=== PATIENT | female | born 1995 | race Caucasian/White ===

== ENCOUNTER 2016-09-28 09:51 | Emergency (ER) | payer BC ==
[~2016-09-28] VITALS: Ht 170.2 cm; Wt 60.0 kg
[~2016-09-28 09:51] MED LIST: LORTA5 PO
[2016-09-28 09:54] VITALS: BP 115/62; PULSE 72; RESP 17; TEMP 98.1; O2SAT 98
[2016-09-28] MEDS ORDERED: BIRTH CONTROL (10:10)
[2016-09-28 10:19] VITALS: O2SAT 99
[2016-09-28] MEDS ORDERED: diphenhydrAMINE HCL 50 MG/ML VIAL IVP ONE (10:30)
[2016-09-28] MEDS ORDERED: SODIUM CHLORIDE 0.9% FLUSH 10 ML FLUSH IVF PRN (10:30)
[2016-09-28] MEDS ORDERED: METOCLOPRAMIDE HCL 10 MG/2 ML VIAL IVP ONE (10:30)
[2016-09-28 10:34] VITALS: BP 101/55; PULSE 76; RESP 15; O2SAT 99
[2016-09-28 10:48] LABS: AUTOMATED NEUTROPHIL # 5.6 TH/MM3 (1.8-7.7); BASOPHIL % 0.3 % (0.0-2.0); EOSINOPHIL % 0.6 % (0.0-4.0); HEMATOCRIT 38.2 % (35.0-46.0); HEMO FLAGS DIFF FINAL; LYMPH % 13.5 % (9.0-44.0); MEAN CELL VOLUME 86.1 FL (80.0-100.0); MEAN CORPUSCULAR HEMOGLOBIN 29.3 PG (27.0-34.0); MONO % 8.9 % (0.0-8.0); NEUT % 76.7 % (16.0-70.0); PLATELET COUNT 284 TH/MM3 (150-450); RED BLOOD COUNT 4.44 MIL/MM3 (4.00-5.30); RED CELL DISTRIBUTION WIDTH 12.2 % (11.6-17.2); WHITE BLOOD COUNT 7.3 TH/MM3 (4.0-11.0)
--- NOTE | 2016-09-28 10:57 | PD ---
HPI Chief Complaint: Seizure Time Seen by Provider: 10:09 Travel History International Travel<30 days: No Contact w/Intl Traveler<30days: No Traveled to known affect area: No History of Present Illness HPI Patient is a 21-year-old healthy female presents the emergency department with possible seizure. Patient was reportedly at home this morning with her significant other. She had a spell of altered mental status and shaking. She did not bite her tongue, did not lose consciousness. Shortly after patient's boyfriend called patient's parents, per parents patient seemed confused and had some garbled speech on the phone. Parents recommended calling 911 but this was not done and they drove from [place] to the house. In the interim patient mental status improved and she is now at baseline though confused about what happened. She notes a mild headache and some nausea. No history of seizure and self or family. No history of syncope, arrhythmia or familial history of long QT syndrome, WPW, Brugada. PFSH Past Medical History Medical History: Denies Significant Hx Pneumonia: Yes Tetanus Vaccination: Unknown Influenza Vaccination: No ?: Unknown LMP: UNKNOWN : 0 Past Surgical History Surgical History: No Previous Surgery Social History Alcohol Use: No Tobacco Use: No Substance Use: No Allergies-Medications (Allergen,Severity, Reaction): Coded Allergies: No Known Allergies (Verified , 09/28/16) Reported Meds & Prescriptions Reported Meds & Active Scripts Active Reported [ Control ] Review of Systems Except as stated in HPI: all other systems reviewed are Neg Physical Exam Narrative GENERAL: Well-appearing female in no acute distress SKIN: Focused skin assessment warm/dry. HEAD: Atraumatic. Normocephalic. EYES: Pupils equal and round. No scleral icterus. No injection or drainage. ENT: No nasal bleeding or discharge. Mucous membranes pink and moist. No tongue biting. NECK: Supple. CARDIOVASCULAR: Regular rate and rhythm. No murmur appreciated. RESPIRATORY: No accessory muscle use. Clear to auscultation. Breath sounds equal bilaterally. GASTROINTESTINAL: Abdomen soft, non-tender, nondistended. Urinary incontinence. MUSCULOSKELETAL: No obvious deformities. No clubbing. No cyanosis. No edema. NEUROLOGICAL: Awake and alert. No obvious cranial nerve deficits. Motor grossly within normal limits. Normal speech. PSYCHIATRIC: Appropriate mood and affect; insight and judgment normal. Data Data Last Documented VS Vital Signs Date Time Temp Pulse Resp B/P Pulse Ox O2 Delivery O2 Flow Rate FiO2 09/28/16 10:34 76 15 101/55 99 Room Air 09/28/16 09:54 98.1 Orders Complete Blood Count With Diff (09/28/16 10:18) Basic Metabolic Panel (Bmp) (09/28/16 10:18) Electrocardiogram (09/28/16 ) Ct Brain W/O Iv Contrast(Rout) (09/28/16 ) Blood Glucose (09/28/16 10:18) Ecg Monitoring (09/28/16 10:18) Iv Access Insert/Monitor (09/28/16 10:18) Oximetry (09/28/16 10:18) Sodium Chloride 0.9% Flush (Ns Flush) (09/28/16 10:30) Diphenhydramine Inj (Benadryl Inj) (09/28/16 10:30) Metoclopramide Inj (Reglan Inj) (09/28/16 10:30) Labs Laboratory Tests Test 09/28/16 10:25 White Blood Count 7.3 TH/MM3 Red Blood Count 4.44 MIL/MM3 Hemoglobin 13.0 GM/DL Hematocrit 38.2 % Mean Corpuscular Volume 86.1 FL Mean Corpuscular Hemoglobin 29.3 PG Mean Corpuscular Hemoglobin 34.0 % Concent Red Cell Distribution Width 12.2 % Platelet Count 284 TH/MM3 Mean Platelet Volume 7.6 FL Neutrophils (%) (Auto) 76.7 % Lymphocytes (%) (Auto) 13.5 % Monocytes (%) (Auto) 8.9 % Eosinophils (%) (Auto) 0.6 % Basophils (%) (Auto) 0.3 % Neutrophils # (Auto) 5.6 TH/MM3 Lymphocytes # (Auto) 1.0 TH/MM3 Monocytes # (Auto) 0.6 TH/MM3 Eosinophils # (Auto) 0.0 TH/MM3 Basophils # (Auto) 0.0 TH/MM3 CBC Comment DIFF FINAL Differential Comment Sodium Level 137 MEQ/L Potassium Level 3.7 MEQ/L Chloride Level 105 MEQ/L Carbon Dioxide Level 24.9 MEQ/L Anion Gap 7 MEQ/L Blood Urea Nitrogen 13 MG/DL Creatinine 0.86 MG/DL Estimat Glomerular Filtration 83 ML/MIN Rate Random Glucose 170 MG/DL Calcium Level 8.3 MG/DL MDM Medical Decision Making Medical Screen Exam Complete: Yes Emergency Medical Condition: Yes Medical Record Reviewed: Yes Differential Diagnosis 21-year-old female here for spell of altered mental status and shaking. Differential includes seizure, syncope with myoclonus, arrhythmia, electrolyte abnormality, symptomatic anemia. Narrative Course Patient placed on monitor, IV established and blood obtained. Twelve-lead EKG shows sinus rhythm without notable ST or T-wave abnormalities and normal intervals. Patient was given Benadryl, Reglan for headache. CBC, BMP obtained and unremarkable. CT of the brain showed no acute abnormalities. Patient's boyfriend presents the ER and describes this event as a generalized tonic- clonic type seizure with rigidity and altered mental status consistent with post ictal phase thereafter. My strong suspicion is that this was a seizure and not a syncopal episode. Patient and parents are reassured and she was referred to neurology for outpatient follow-up. Diagnosis Primary Impression: Seizure Referrals: Adam Sun MD call for appointment Neurologist call for appointment Additional Instructions: Follow up with outpatient neurologist as discussed for further workup of possible first-time seizure. Return to the ER for the warning signs discussed. No driving for 6 months as discussed. Med/Other Pt SpecificInfo: No Change to Meds Disposition: 01 DISCHARGE HOME Condition: Stable Renetta Nuñez MD Sep 28, 2016 10:57
[2016-09-28 11:02] LABS: BICARBONATE 24.9 MEQ/L (21.0-32.0); POTASSIUM 3.7 MEQ/L (3.5-5.1)
--- NOTE | 2016-09-28 11:49 | RADRPT ---
EXAM DATE/TIME: 09/28/2016 11:09 [facility] COMPARISON: CT BRAIN W/O CONTRAST, May 22, 2009, 11:24. INDICATIONS : Possible seizure today. RADIATION DOSE: 56.35 CTDIvol (mGy) MEDICAL HISTORY : None SURGICAL HISTORY : None. ENCOUNTER: Initial ACUITY: 1 day PAIN SCALE: 0/10 LOCATION: Bilateral head TECHNIQUE: Multiple contiguous axial images were obtained of the head. Using automated exposure control and adj ustment of the mA and/or kV according to patient size, radiation dose was kept as low as reasonably a chievable to obtain optimal diagnostic quality images. FINDINGS: There is no evidence for intracranial hemorrhage, mass effect, mass lesions, edema, or extra-axial fl uid collections. The visualized bony structures appear intact. The ventricles are normal size for t he patient's age. There are no signs of acute infarction for technique. CONCLUSION: Unremarkable study. Rani Caro MD on September 28, 2016 at 11:46 Board Certified Radiologist. This report was verified electronically.
[2016-09-28 12:00] VITALS: BP 100/51; PULSE 72; RESP 15; O2SAT 98
[2016-09-28 13:10] VITALS: BP 103/49
--- NOTE | 2016-09-28 13:41 | EKG ---
Date Performed: 09/28/2016 Time Performed: 10:10:36 PTAGE: 21 years EKG: Sinus rhythm NORMAL ECG NO PREVIOUS TRACING DOCTOR: Bharat Sotelo Interpretating Date/Time 09/28/2016 13:39:40
== END 2016-09-28 13:11 | disposition home or self-care (01) ==
LOC: NEPE 09:51
DX: R56.9 Unspecified convulsions (principal)
CPT/HCPCS: 70450; 80048; 85025; 93005; 96374; 96375; 99285; J1200; J2765

== ENCOUNTER 2016-11-03 11:03 | Inpatient (IN) | payer BC ==
[~2016-11-03] VITALS: Ht 172.7 cm; Wt 71.3 kg
[2016-11-03] VITALS (13 sets, daily range): BP systolic 105–129; BP diastolic 51–81; PULSE 70–113; RESP 18–44; TEMP 97.8–98.7; O2SAT 70–100
[~2016-11-03 11:03] MED LIST changes: +BIRTH CONTROL; -LORTA5 PO
[2016-11-03] MEDS ORDERED: SODIUM CHLORIDE 0.9% FLUSH 10 ML FLUSH IVF PRN (11:15)
[2016-11-03] MEDS ORDERED: [UNRECOGNIZED DRUG - OTHER] PO (11:22)
--- NOTE | 2016-11-03 11:34 | RADRPT ---
EXAM DATE/TIME: 11/03/2016 11:13 [facility] COMPARISON: No previous studies available for comparison. INDICATIONS : Patient states chest pain after seizure today. MEDICAL HISTORY : None. SURGICAL HISTORY : None. ENCOUNTER: Initial ACUITY: 1 day PAIN SCORE: 10 LOCATION: Bilateral chest FINDINGS: Portable AP view of the chest demonstrates a normal-sized cardiac silhouette. There is moderate to se french airspace consolidation in the right lower lung zone with mild consolidation in the right upper l ben zone and left mid to lower lung zone. No pleural effusion or pneumothorax is visualized. The bone s and soft tissues demonstrate no acute finding. CONCLUSION: Bilateral airspace consolidation, right greater than left. Given the history of recent seizure, diffe rential diagnosis includes a neurogenic pulmonary edema, aspiration, or infection. Seb Davis MD on November 03, 2016 at 11:31 Board Certified Radiologist. This report was verified electronically.
[2016-11-03 11:40] LABS: AUTOMATED NEUTROPHIL # 23.6 TH/MM3 (1.8-7.7); BASOPHIL # 0.1 TH/MM3 (0-0.2); BASOPHIL % 0.2 % (0.0-2.0); EOSINOPHIL % 0.1 % (0.0-4.0); HEMATOCRIT 42.4 % (35.0-46.0); HEMO FLAGS DIFF FINAL; LYMPH % 2.1 % (9.0-44.0); LYMPHOCYTE # 0.5 TH/MM3 (1.0-4.8); MEAN CELL VOLUME 88.6 FL (80.0-100.0); MEAN CORPUSCULAR HEMOGLOBIN 29.4 PG (27.0-34.0); MEAN CORPUSCULAR HGB CONC 33.2 % (32.0-36.0); MONO % 5.5 % (0.0-8.0); NEUT % 92.1 % (16.0-70.0); PLATELET COUNT 337 TH/MM3 (150-450); RED BLOOD COUNT 4.79 MIL/MM3 (4.00-5.30); RED CELL DISTRIBUTION WIDTH 12.5 % (11.6-17.2); WHITE BLOOD COUNT 25.6 TH/MM3 (4.0-11.0)
[2016-11-03 11:48] LABS: APTT (PATIENT) 22.9 SEC (24.3-30.1); INTERNATIONAL NORMALIZED RATIO 1.1 RATIO; PROTHROMBIN TIME - PATIENT 11.9 SEC (9.8-11.6)
[2016-11-03 11:55] LABS: ALT (GPT) 22 U/L (10-53); ANION GAP 8 MEQ/L (5-15); AST (GOT) 22 U/L (15-37); BICARBONATE 25.7 MEQ/L (21.0-32.0); BLOOD UREA NITROGEN 14 MG/DL (7-18); CHLORIDE 106 MEQ/L (98-107); GLOMERULAR FILTRATION RATE 62 ML/MIN (>89); MAGNESIUM 1.7 MG/DL (1.5-2.5); SODIUM (NA) 140 MEQ/L (136-145)
[2016-11-03 11:59] LABS: ALKALINE PHOSPHATASE 59 U/L (45-117); BETA HCG QUANT LESS THAN 1 MIU/ML (0-5); CREATINE KINASE 169 U/L (26-192); TOTAL BILIRUBIN ADULT 0.4 MG/DL (0.2-1.0)
[2016-11-03 12:12] LABS: CKMB 1.4 NG/ML (0.5-3.6)
[2016-11-03] MEDS ORDERED: VANCOMYCIN INJ 1,000 MG in SODIUM CHLOR 0.9% 250 ML INJ 250 ML IV ONE (12:15)
[2016-11-03] MEDS ORDERED: PIPERACIL-TAZO 4.5 GM PREMIX 100 ML IV ONE (12:15)
[2016-11-03 12:49] LABS: BLOOD GAS BASE EXCESS -0.4 mmol/L (-2-2); BLOOD GAS CARBOXYHEMOGLOBIN 1.1 % (0-4); BLOOD GAS HCO3 24 mmol/L (22-26); BLOOD GAS METHEMOGLOBIN 0.5 % (0-2); BLOOD GAS O2 HGB SATURATION 94 % (90-100); BLOOD GAS OXYGEN CONTENT 18.5 Vol % (12.0-20.0); BLOOD GAS PCO2 38 mmHg (38-42); BLOOD GAS PO2 75 mmHG (61-120); TEMP CORR TO 98.6
[2016-11-03 12:50] LABS: CRITICAL VALUE NO; DRAW SITE LT RADIAL; LITER FLOW 15 L/M; NUMBER OF ARTERIAL PUNCTURES 1; STAT YES; ULNAR PULSE PRESENT
[2016-11-03] MEDS ORDERED: IOHEXOL 350 MG/ML 10 ML VIAL (for RAD DIAG) IV ONE (13:07)
--- NOTE | 2016-11-03 14:01 | RADRPT ---
EXAM DATE/TIME: 11/03/2016 13:07 [facility] COMPARISON: No previous studies available for comparison. INDICATIONS : Hypoxic seizures,techacardia IV CONTRAST: 90 cc Omnipaque 350 (iohexol) IV RADIATION DOSE: 23.58 CTDIvol (mGy) MEDICAL HISTORY : Seizures. SURGICAL HISTORY : None. ENCOUNTER: Initial ACUITY: 1 day PAIN SCALE: 4/10 LOCATION: chest TECHNIQUE: Volumetric scanning of the chest was performed using a pulmonary embolism protocol MIP images were re constructed. Using automated exposure control and adjustment of the mA and/or kV according to patien t size, radiation dose was kept as low as reasonably achievable to obtain optimal diagnostic quality images. FINDINGS: PULMONARY ARTERIES: There is poor opacification of the pulmonary arteries. This limits evaluation for PE. No PE is identi fied in the main or left and right pulmonary artery branches. Lobar and segmental branches cannot def initely be cleared. LUNGS: There is patchy moderate to severe areas of groundglass attenuation and consolidation bilaterally, ri ght greater than left. Some of the areas demonstrates a crazy paving pattern. No pneumothorax is pres ent. PLEURAE: There is no pleural thickening or pleural effusion. MEDIASTINUM: There is good visualization of the great vessels of the middle mediastinum. No evidence of mediastin al or hilar adenopathy/mass. MUSCULOSKELETAL: Within normal limits for patient age. MISCELLANEOUS: The visualized upper abdominal organs demonstrate no acute abnormality. CONCLUSION: 1. Examination is suboptimal for evaluation for PE. This is secondary to poor opacification of the pu lmonary arteries likely due to bolus timing. No central PE is identified. If there is persistent clin ical concern for PE, consider VQ scan or repeat attempt at a repeat study. 2. Moderate to severe bilateral airspace consolidation and groundglass opacity, right greater than le ft. Appearance is nonspecific. This could represent atypical pulmonary edema, organizing pneumonia, o r other nonspecific inflammatory processes. Consider followup to confirm resolution. Seb Davis MD on November 03, 2016 at 13:53 Board Certified Radiologist. This report was verified electronically.
[2016-11-03] MEDS ORDERED: POTASSIUM PHOSPHATE MONOBASIC 500 MG TAB PO/TUBE PRN (15:00)
[2016-11-03] MEDS ORDERED: RESP: ALBUTEROL 2.5 MG/IPRATROPIUM 0.5 MG NEB (PRN) INH (15:00)
[2016-11-03] MEDS ORDERED: POTASSIUM PHOSPHATE MONOBASIC 500 MG TAB PO PRN (15:00)
[2016-11-03] MEDS ORDERED: MAGNESIUM OXIDE 400 MG TAB PO PRN (15:00)
[2016-11-03] MEDS ORDERED: MAGNESIUM SULFATE INJ 4 GM in SODIUM CHLORIDE 0.9% INJ 92 ML IV PRN (15:00)
[2016-11-03] MEDS ORDERED: POTASSIUM CHLOR 20 MEQ PREMIX 100 ML IV PRN ×2 (15:00)
[2016-11-03] MEDS ORDERED: POTASSIUM CHLOR 40 MEQ PREMIX 100 ML IV PRN ×2 (15:00)
[2016-11-03] MEDS ORDERED: Vancomycin Consult Pharmacy 1 EA OTHER SCH (15:00)
[2016-11-03] MEDS ORDERED: MAGNESIUM SULFATE INJ 2 GM in SODIUM CHLORIDE 0.9% INJ 96 ML IV PRN (15:00)
[2016-11-03] MEDS ORDERED: SODIUM PHOSPHATE INJ 30 MMOL in SODIUM CHLOR 0.9% 250 ML INJ 240 ML IV PRN (15:00)
--- NOTE | 2016-11-03 15:00 | HHI.HP ---
HPI Service Critical Care Medicine Primary Care Physician No Primary Care Physician Admission Diagnosis Diagnosis: Chief Complaint: Weakness Travel History International Travel<30 Days: No Contact w/Intl Traveler <30 Da: No Traveled to Known Affected Are: No History of Present Illness This is a 21-year-old female with a completely unremarkable past medical history who presents with a subacute history of altered mental status episodes which she states she was diagnosed as having seizures around [facility]. She had one of these episodes last night and since then has been feeling more weak and fatigued. She presents today in the emergency department and was found to be severely hypoxemic with SPO2 in the 70s. Chest x-ray showed bilateral pulmonary infiltrates. Chest CT angiography demonstrated multiple areas of groundglass opacities in all lung savage, negative for PE. 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 She states that over the past 2 weeks she's been taking an oral over-the- counter muscle building supplementation that she got from a [employer] store. She denies taking IV steroids. She denies any shortness of breath, and felt feels that she does not feel like she can't catch her breath. She denies chest pain, fever, chills. She denies night sweats. She is sexually active with 1 partner in the last 12 months. She takes control. She usually uses condoms, but not all the time. She has never had an STD before. She is only been out of the country to the [facility], and not in the last 12 months. She is born and raised in [place]. She's never been to the [place]. She has never been tested for HIV. She denies any weight loss over the last few months. She as recently as 2 days prior to admission aggressively weight trained for an upcoming competition, and did at least 2 hours of strenuous cardiovascular activity. She has had no change in functional status. Her laboratory data is significant for a leukocytosis with a white count 25,000 , negative troponin, BNP of 40, lactate of 1.8, negative urine drug screen. Critical care medicine is consulted to evaluate and manage her hypoxemia. She is on a nonrebreather on my evaluation. Review of Systems Constitutional: COMPLAINS OF: Fatigue, DENIES: Diaphoretic episodes, Fever, Weight gain, Weight loss, Chills, Dizziness, Night Sweats Endocrine: DENIES: Heat/cold intolerance Eyes: DENIES: Blurred vision Ears, nose, mouth, throat: DENIES: Nasal discharge, Oral lesions Respiratory: DENIES: Apneas, Cough, Snoring, Wheezing, Hemoptysis, Sputum production, Shortness of breath Cardiovascular: DENIES: Chest pain, Palpitations, Syncope, Dyspnea on Exertion , PND, Lower Extremity Edema, Orthopnea Gastrointestinal: DENIES: Abdominal pain, Constipation, Diarrhea, Nausea, Vomiting Neurologic: COMPLAINS OF: Seizures, DENIES: Headache, Localized weakness Past Family Social History Allergies: Coded Allergies: No Known Allergies (Verified , 11/03/16) Past Medical History Questionably new diagnosis of seizures since September 2016. Being managed as an outpatient by a neurologist Past Surgical History None Reported Medications Oral contraceptives Active Ordered Medications See MAR Family History Mother diagnosed with breast cancer in her 30s Maternal grandmother diagnosed with breast cancer in her late 60s Social History Never smoked. Does not drink alcohol. Does not do any other drugs of abuse. 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 Physical Exam Vital Signs Vital Signs Date Time Temp Pulse Resp B/P Pulse Ox O2 Delivery O2 Flow Rate FiO2 11/03/16 13:57 93 Non-Rebreather 15 11/03/16 13:57 32 80 Nasal Cannula 6 11/03/16 13:52 98.7 87 32 115/60 84 Nasal Cannula 6 11/03/16 12:00 88 40 114/56 100 Non-Rebreather 15 11/03/16 11:18 97 Non-Rebreather 15 11/03/16 11:18 32 70 11/03/16 11:15 97.8 100 32 105/51 70 Physical Exam GENERAL: Young female, very tachypneic, sitting in bed, nonrebreather in place HEENT: Normocephalic. Atraumatic. Pupils equal, round, reactive, conjugate. Mucous membranes are pink and moist. NECK: No JVD. Nonrebreather place. Trachea is midline. CHEST: Tachypneic, mildly labored, fine rales in all lung savage. SPO2 91% on nonrebreather CARDIOVASCULAR: Tachycardic rate, regular rhythm. Sinus by telemetry ABDOMEN: Soft, nontender, nondistended. No guarding. MUSCULOSKELETAL: No peripheral edema. Distal pulses 2+. NEUROLOGICAL: RASS 0. GCS 15. CAM -. Follows commands in all 4 extremity's. No gross focal motor or sensory deficits. Laboratory Laboratory Tests Test 11/03/16 11/03/16 11/03/16 11:30 12:35 13:30 White Blood Count 25.6 Red Blood Count 4.79 Hemoglobin 14.1 Hematocrit 42.4 Mean Corpuscular Volume 88.6 Mean Corpuscular Hemoglobin 29.4 Mean Corpuscular Hemoglobin 33.2 Concent Red Cell Distribution Width 12.5 Platelet Count 337 Mean Platelet Volume 7.5 Neutrophils (%) (Auto) 92.1 Lymphocytes (%) (Auto) 2.1 Monocytes (%) (Auto) 5.5 Eosinophils (%) (Auto) 0.1 Basophils (%) (Auto) 0.2 Neutrophils # (Auto) 23.6 Lymphocytes # (Auto) 0.5 Monocytes # (Auto) 1.4 Eosinophils # (Auto) 0.0 Basophils # (Auto) 0.1 CBC Comment DIFF FINAL Differential Comment Prothrombin Time 11.9 Prothromb Time International 1.1 Ratio Activated Partial 22.9 Thromboplast Time Sodium Level 140 Potassium Level 4.0 Chloride Level 106 Carbon Dioxide Level 25.7 Anion Gap 8 Blood Urea Nitrogen 14 Creatinine 1.10 Estimat Glomerular Filtration 62 Rate Random Glucose 148 Calcium Level 8.5 Magnesium Level 1.7 Total Bilirubin 0.4 Aspartate Amino Transf 22 (AST/SGOT) Alanine Aminotransferase 22 (ALT/SGPT) Alkaline Phosphatase 59 Total Creatine Kinase 169 Creatine Kinase MB 1.4 Troponin I LESS THAN 0.02 B-Type Natriuretic Peptide 40 Total Protein 6.5 Albumin 3.8 Human Chorionic Gonadotropin, LESS THAN 1 Quant Blood Gas Puncture Site LT RADIAL Blood Gas Patient Temperature 98.6 Blood Gas HCO3 24 Blood Gas Base Excess -0.4 Blood Gas Oxygen Saturation 94 Arterial Blood pH 7.41 Arterial Blood Partial 38 Pressure CO2 Arterial Blood Partial 75 Pressure O2 Arterial Blood Oxygen Content 18.5 Arterial Blood 1.1 Carboxyhemoglobin Arterial Blood Methemoglobin 0.5 Blood Gas Hemoglobin 14.0 Oxygen Delivery Device Non-Rebreathing Mask Blood Gas Liter Flow 15 Lactic Acid Level 1.8 Date/Time Procedure Status Source Growth 11/03/16 12:30 Aerobic Blood Culture Received Blood Peripheral Pending 11/03/16 12:30 Anaerobic Blood Culture Received Blood Peripheral Pending Result Diagram: 11/03/16 1130 11/03/16 1130 Imaging Last Impressions Chest X-Ray 11/03/16 1115 Signed Impressions: Service Date/Time: Thursday, November 03, 2016 11:13 - CONCLUSION: Bilateral airspace consolidation, right greater than left. Given the history of recent seizure, differential diagnosis includes a neurogenic pulmonary edema, aspiration, or infection. Seb Davis MD CT Angiography 11/03/16 1115 Signed Impressions: Service Date/Time: Thursday, November 03, 2016 13:07 - CONCLUSION: 1. Examination is suboptimal for evaluation for PE. This is secondary to poor opacification of the pulmonary arteries likely due to bolus timing. No central PE is identified. If there is persistent clinical concern for PE, consider VQ scan or repeat attempt at a repeat study. 2. Moderate to severe bilateral airspace consolidation and groundglass opacity, right greater than left. Appearance is nonspecific. This could represent atypical pulmonary edema, organizing pneumonia, or other nonspecific inflammatory processes. Consider followup to confirm resolution. Seb Davis MD Assessment and Plan Assessment and Plan Assessment: This is a 21-year-old female with subacute diagnosis of intermittent seizures, but very acute new hypoxemia and acute hypoxic respiratory failure. Her groundglass opacities are very concerning for an infectious process such as an atypical Mycoplasma, Legionella, PCP, histoplasma. Alternatively, this could be noninfectious from noncardiogenic pulmonary edema. I have sent out laboratory testing for Legionella, histoplasma , blood, urine cultures, sputum cultures, HIV (which I verbally consented the patient for, and she expressed understanding and agreed). We will start patient on empiric antibiotics vancomycin, Zosyn, azithromycin. We will admit her to the ICU for close monitoring. Given her severe hypoxemia, she is very near requiring noninvasive or invasive positive pressure ventilation, and is at high risk for decompensating. She is critically ill this time. Active problems: Acute hypoxic respiratory failure Bilateral groundglass pulmonary consolidations Leukocytosis Plan: Admit to the ICU Nonrebreather Wean FiO2 for goal SPO2 greater than 90% May require BiPAP or invasive mechanical ventilation Clear liquid diet only Follow-up cultures Follow-up histoplasma, Legionella, pneumococcal urinary antigen Vancomycin with pharmacy dosing Zosyn 4.5 g IV every 6 Azithromycin 500 mg IV every 24 Nebs when necessary 2-D echo Consult infectious disease We will hold off on consulting pulmonary until initial laboratory data is back. This patient remains critically ill with one or more organ systems which are or may become a threat to life. I have spent in excess of 53 minutes discontinuously in the care and management of this patient. This time is exclusive of procedures, and includes, but is not limited to, evaluation of the patient, review of the medical record, discussions with family, consultants, nursing staff, or respiratory therapy, and documentation in the medical record. Code Status Full Code Giancarlo Spence MD November 03, 2016 15:00
--- NOTE | 2016-11-03 15:05 | PD ---
HPI Chief Complaint: Seizure Time Seen by Provider: 11:15 Travel History International Travel<30 days: No Contact w/Intl Traveler<30days: No Traveled to known affect area: No History of Present Illness HPI Patient 21-year-old female with a history of seizures presents emergency department postictal after seizure with hypoxia. Patient states that she does not take any antiepileptic. She states that she's had a cough ever since a seizure today. Patient is awake left orbit denies IV drug abuse. Denies any fever denies any illness prior to today. States last time she would had a seizure was unknown. PFSH Past Medical History Diminished Hearing: No Pneumonia: Yes Seizures: Yes Tetanus Vaccination: > 5 Years Influenza Vaccination: No ?: Not LMP: 10/2016 : 0 Para: 0 Miscarriage: 0 : 0 Social History Alcohol Use: No Tobacco Use: No Substance Use: No Allergies-Medications (Allergen,Severity, Reaction): Coded Allergies: No Known Allergies (Verified , 11/03/16) Reported Meds & Prescriptions Reported Meds & Active Scripts Active Reported [Plague Supplement] 1 Tab PO DAILY [ Control ] Review of Systems Except as stated in HPI: all other systems reviewed are Neg Physical Exam Narrative GENERAL: Well-developed well-nourished central cyanosis and pallor. SKIN: Focused skin assessment warm/dry. HEAD: Atraumatic. Normocephalic. No splitter hemorrhages no Osler nodes. EYES: Pupils equal and round. No scleral icterus. No injection or drainage. ENT: No nasal bleeding or discharge. Mucous membranes pink and moist. NECK: Trachea midline. No JVD. CARDIOVASCULAR: Regular rhythm with tachycardia.. No murmur appreciated. RESPIRATORY: No accessory muscle use. Clear to auscultation. Breath sounds equal bilaterally. GASTROINTESTINAL: Abdomen soft, non-tender, nondistended. Hepatic and splenic margins not palpable. MUSCULOSKELETAL: No obvious deformities. No clubbing. No cyanosis. No edema. NEUROLOGICAL: Awake and alert. No obvious cranial nerve deficits. Motor grossly within normal limits. Normal speech. PSYCHIATRIC: Appropriate mood and affect; insight and judgment normal. Data Data Last Documented VS Vital Signs Date Time Temp Pulse Resp B/P Pulse Ox O2 Delivery O2 Flow Rate FiO2 11/03/16 14:00 97 Non-Rebreather 15.00 11/03/16 13:57 32 11/03/16 13:52 98.7 87 115/60 Orders Electrocardiogram (11/03/16 11:15) B-Type Natriuretic Peptide (11/03/16 11:15) Ckmb (Isoenzyme) Profile (11/03/16 11:15) Complete Blood Count With Diff (11/03/16 11:15) Comprehensive Metabolic Panel (11/03/16 11:15) Magnesium (Mg) (11/03/16 11:15) Prothrombin Time / Inr (Pt) (11/03/16 11:15) Act Partial Throm Time (Ptt) (11/03/16 11:15) Troponin I (11/03/16 11:15) Chest, Single Ap (11/03/16 11:15) Ecg Monitoring (11/03/16 11:15) Iv Access Insert/Monitor (11/03/16 11:15) Oximetry (11/03/16 11:15) Oxygen Administration (11/03/16 11:15) Sodium Chloride 0.9% Flush (Ns Flush) (11/03/16 11:15) Ct Pulmonary Angiogram (11/03/16 11:15) Beta Hcg (Quant/Titer) (11/03/16 11:15) CKMB (11/03/16 11:30) CKMB% (11/03/16 11:30) Vancomycin Inj (Vancomycin Inj) (11/03/16 12:15) Piperacil-Tazo 4.5 Gm Premix (Zosyn 4.5 (11/03/16 12:15) Blood Culture (11/03/16 12:01) Arterial Blood Gas (Abg) (11/03/16 ) Lactic Acid Sepsis Protocol (11/03/16 13:05) Drug Screen, Random Urine (11/03/16 13:55) Inpatient Certification (11/03/16 14:46) Resp Ezpap/Pep Therapy (11/03/16 14:46) Resp Acapella/Pep/Chest Vibra (11/03/16 14:46) Resp Incentive Spirometry (11/03/16 14:46) Magnesium Oxide (Mag-Ox) (11/03/16 15:00) Magnesium Sulfate Inj (Magnesium Sulfate (11/03/16 15:00) Magnesium Sulfate Inj (Magnesium Sulfate (11/03/16 15:00) Potassium Chlor 20 Meq Premix (Kcl 20 Me (11/03/16 15:00) Potassium Chlor 20 Meq Premix (Kcl 20 Me (11/03/16 15:00) Potassium Chlor 40 Meq Premix (Kcl 40 Me (11/03/16 15:00) Potassium Chlor 40 Meq Premix (Kcl 40 Me (11/03/16 15:00) Potassium Phosphate (K-Phos) (11/03/16 15:00) Potassium Phosphate (K-Phos) (11/03/16 15:00) Sodium Phosphate Inj (Sodium Phosphate I (11/03/16 15:00) ^ Medication Admin Instruction (11/03/16 14:46) Notify Dr: Other (11/03/16 14:46) Cbc No Diff, Includes Plts (11/04/16 05:00) Cbc No Diff, Includes Plts (11/05/16 05:00) Cbc No Diff, Includes Plts (11/06/16 05:00) Cbc No Diff, Includes Plts (11/07/16 05:00) Cbc No Diff, Includes Plts (11/08/16 05:00) Cbc No Diff, Includes Plts (11/09/16 05:00) Cbc No Diff, Includes Plts (11/10/16 05:00) Basic Metabolic Panel (Bmp) (11/04/16 05:00) Basic Metabolic Panel (Bmp) (11/05/16 05:00) Basic Metabolic Panel (Bmp) (11/06/16 05:00) Basic Metabolic Panel (Bmp) (11/07/16 05:00) Basic Metabolic Panel (Bmp) (11/08/16 05:00) Basic Metabolic Panel (Bmp) (11/09/16 05:00) Basic Metabolic Panel (Bmp) (11/10/16 05:00) Arterial Blood Gas (Abg) (11/04/16 06:00) Albuterol-Ipratropium Neb (Duoneb Neb) (11/03/16 16:00) Albuterol-Ipratropium Neb (Duoneb Neb) (11/03/16 15:00) Sputum Culture And Gram Stain (11/03/16 14:46) Urinalysis - C+S If Indicated (11/03/16 14:46) Specimen To Be Collected PRN (11/03/16 14:46) Ur Histoplasma Antigen (11/03/16 14:48) Legionella Urinary Antigen (11/03/16 14:48) Mycoplasma Pneumoniae (11/03/16 14:48) Chlamydia Pneumoniae Abs (11/03/16 14:48) Pneumococcal Urinary Antigen (11/03/16 14:48) Hiv Antibody Screen (11/03/16 14:49) Vancomycin Consult Pharmacy (Vancomycin (11/03/16 15:00) Piperacil-Tazo 4.5 Gm Premix (Zosyn 4.5 (11/03/16 18:00) Azithromycin Inj (Zithromax Inj) (11/03/16 15:00) Consult Infectious Disease (11/03/16 ) Echo 2d Comp With Doppler (11/03/16 ) Admit Order (Ed Use Only) (11/03/16 ) Labs Laboratory Tests Test 11/03/16 11/03/16 11/03/16 11/03/16 11:30 12:35 13:30 15:00 White Blood Count 25.6 TH/MM3 Red Blood Count 4.79 MIL/MM3 Hemoglobin 14.1 GM/DL Hematocrit 42.4 % Mean Corpuscular Volume 88.6 FL Mean Corpuscular Hemoglobin 29.4 PG Mean Corpuscular Hemoglobin 33.2 % Concent Red Cell Distribution Width 12.5 % Platelet Count 337 TH/MM3 Mean Platelet Volume 7.5 FL Neutrophils (%) (Auto) 92.1 % Lymphocytes (%) (Auto) 2.1 % Monocytes (%) (Auto) 5.5 % Eosinophils (%) (Auto) 0.1 % Basophils (%) (Auto) 0.2 % Neutrophils # (Auto) 23.6 TH/MM3 Lymphocytes # (Auto) 0.5 TH/MM3 Monocytes # (Auto) 1.4 TH/MM3 Eosinophils # (Auto) 0.0 TH/MM3 Basophils # (Auto) 0.1 TH/MM3 CBC Comment DIFF FINAL Differential Comment Prothrombin Time 11.9 SEC Prothromb Time International 1.1 RATIO Ratio Activated Partial 22.9 SEC Thromboplast Time Sodium Level 140 MEQ/L Potassium Level 4.0 MEQ/L Chloride Level 106 MEQ/L Carbon Dioxide Level 25.7 MEQ/L Anion Gap 8 MEQ/L Blood Urea Nitrogen 14 MG/DL Creatinine 1.10 MG/DL Estimat Glomerular Filtration 62 ML/MIN Rate Random Glucose 148 MG/DL Calcium Level 8.5 MG/DL Magnesium Level 1.7 MG/DL Total Bilirubin 0.4 MG/DL Aspartate Amino Transf 22 U/L (AST/SGOT) Alanine Aminotransferase 22 U/L (ALT/SGPT) Alkaline Phosphatase 59 U/L Total Creatine Kinase 169 U/L Creatine Kinase MB 1.4 NG/ML Troponin I LESS THAN 0.02 NG/ML B-Type Natriuretic Peptide 40 PG/ML Total Protein 6.5 GM/DL Albumin 3.8 GM/DL Human Chorionic Gonadotropin, LESS THAN 1 Quant MIU/ML Blood Gas Puncture Site LT RADIAL Blood Gas Patient Temperature 98.6 Blood Gas HCO3 24 mmol/L Blood Gas Base Excess -0.4 mmol/L Blood Gas Oxygen Saturation 94 % Arterial Blood pH 7.41 Arterial Blood Partial 38 mmHg Pressure CO2 Arterial Blood Partial 75 mmHG Pressure O2 Arterial Blood Oxygen Content 18.5 Vol % Arterial Blood 1.1 % Carboxyhemoglobin Arterial Blood Methemoglobin 0.5 % Blood Gas Hemoglobin 14.0 G/DL Oxygen Delivery Device Non-Rebreathing Mask Blood Gas Liter Flow 15 L/M Lactic Acid Level 1.8 mmol/L Urine Color YELLOW Urine Turbidity CLEAR Urine pH 7.0 Urine Specific [place] GREATER THAN 1.035 Urine Protein TRACE mg/dL Urine Glucose (UA) NEG mg/dL Urine Ketones NEG mg/dL Urine Occult Blood NEG Urine Nitrite NEG Urine Bilirubin NEG Urine Urobilinogen LESS THAN 2.0 MG/DL Urine Leukocyte Esterase NEG Urine RBC 1 /hpf Urine WBC 2 /hpf Urine Squamous Epithelial 2 /hpf Cells Urine Bacteria RARE /hpf Urine Mucus FEW /lpf Microscopic Urinalysis Comment CATH-CULTURE IND Urine Opiates Screen NEG Urine Barbiturates Screen NEG Urine Amphetamines Screen NEG Urine Benzodiazepines Screen NEG Urine Cocaine Screen NEG Urine Cannabinoids Screen NEG MDM Medical Decision Making Medical Screen Exam Complete: Yes Emergency Medical Condition: Yes Interpretation(s) EKG shows sinjus tachycardia, non-specific t-wave abnormality. No elevations of ST segments. Abnormal ekg. Differential Diagnosis Pneumonia, sepsis, hypoxia, PE, epilepsy, aspiration. Narrative Course Patient was roomed in emergency department, she does have SIRS criteria with a normal lactic acid and therefore send sepsis without septic shock. Chest x-ray shows patchy infiltrate. CT pulmonary embolism shows no evidence of pulmonary embolism but does show groundglass opacities consistent with multilobar pneumonia. Differential diagnosis does include neurogenic pulmonary edema as well as pneumonia as well as septic pulmonary emboli the latter being less likely. Patient's father is pulmonary the room and explained that the patient has been offered intravenous steroids in the past but has declined them on multiple times. Last 24 hours Impressions Chest X-Ray 11/03/16 1115 Signed Impressions: Service Date/Time: Thursday, November 03, 2016 11:13 - CONCLUSION: Bilateral airspace consolidation, right greater than left. Given the history of recent seizure, differential diagnosis includes a neurogenic pulmonary edema, aspiration, or infection. Seb Davis MD CT Angiography 11/03/16 1115 Signed Impressions: Service Date/Time: Thursday, November 03, 2016 13:07 - CONCLUSION: 1. Examination is suboptimal for evaluation for PE. This is secondary to poor opacification of the pulmonary arteries likely due to bolus timing. No central PE is identified. If there is persistent clinical concern for PE, consider VQ scan or repeat attempt at a repeat study. 2. Moderate to severe bilateral airspace consolidation and groundglass opacity, right greater than left. Appearance is nonspecific. This could represent atypical pulmonary edema, organizing pneumonia, or other nonspecific inflammatory processes. Consider followup to confirm resolution. Seb Davis MD Patient with tachycardia, increased WBC. Ground glass opacity on CT. Considering the above patient with PNA and hypoxic respiratory failure requiring NRB in ED to maintain sat >90%. Antibiotics given. [place] [facility] [place] Dr. Spence. Critical Care Narrative Critical Care: The total critical care time was 31 minutes. Multiple reassessments, interpreting results, discussing with consultants. Possible adverse outcomes include , disability and organ failure. Time to perform other separately billable procedures was not included in the critical care time. Sepsis Criteria SIRS Criteria (2 or more): Heart rate over 90, WBC > 52488, < 4000 or > 10% bands Sepsis Criteria (SIRS+source): Infect source susp/known Diagnosis Primary Impression: Acute respiratory failure with hypoxia Additional Impressions: Sepsis PNA (pneumonia) Admitting Information Admitting Physician Requests: Admit Condition: Isaias Thacker MD November 03, 2016 15:05
[2016-11-03 15:19] LABS: AMPHETAMINE, URINE NEG (NEG); BARBITURATES, URINE NEG (NEG); COCAINE, URINE NEG (NEG)
[2016-11-03] MEDS: AZITHROMYCIN INJ 500 MG in SODIUM CHLOR 0.9% 250 ML INJ 250 ML IV SCH (15:58)
[2016-11-03 16:12] LABS: BACTERIA, URINE RARE /hpf; BLOOD, URINE NEG (NEG); COMMENT (UR) CATH-CULTURE IND; CULTURE IF INDICATED CATH CULTURE IND; GLUCOSE,URINE NEG (NEG); KETONE, URINE NEG (NEG); MUCUS URINE FEW /lpf (OCC); NITRITE,URINE NEG (NEG); SQUAMOUS EPITHELIAL CELL URINE 2 /hpf (0-5); URINE COLOR YELLOW (YELLW/STRAW)
[2016-11-03] MEDS: RESP: ALBUTEROL 2.5 MG/IPRATROPIUM 0.5 MG NEB (SCH) INH ×2 (16:41→20:45)
[2016-11-03] MEDS ORDERED: CHLORHEXIDINE GLUCONATE 2 % 1 PACK (2 CLOTHS)(extra cloths) TOPICAL PRN (19:15)
[2016-11-03] MEDS: SODIUM CHLOR 0.9% 1000 ML INJ 1,000 ML IV SCH (20:25)
[2016-11-03] MEDS: PIPERACIL-TAZO 4.5 GM PREMIX 100 ML IV SCH (20:44)
--- NOTE | 2016-11-03 22:38 | MB ---
cc: MAKENNA MORENO MD DATE OF CONSULTATION 11/03/[address] Matthews REASON FOR CONSULTATION A 19-year-old female with new ground glass opacities, leukocytosis. HISTORY OF PRESENT ILLNESS This is a 21-year-old white female presented to the emergency department with sudden onset of seizures and shortness of breath. The patient experienced two seizures while in the emergency department. She developed sudden onset of shortness of breath today. The patient states that she was feeling well over the past couple of days. I also spoke to her mom who states that she had lunch with her two days ago and she was fine. 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 She denies recent problems except for some back pain about a week ago for which she saw a chiropractor and was treated and she stated that it improved. She had no problems with fevers or chills. Evaluation in the emergency department revealed respiratory rate of 32 and white count of 25.6. Oxygenation revealed a pO2 of 75 and pCO2 of 38. The patient denies prior history of immunosuppression. She has used an [id number] anabolic muscle building supplement named Sarms over the past three weeks. She denies exposure to persons who have been sick. She works out at a gym. She denies problems with dysuria. The patient is sexually active and uses control pills. She has no problems with her menstrual periods. She is coughing up bloody sputum. Chest x-ray earlier this morning showed bilateral airspace consolidation. CT scan of chest shows moderate to severe bilateral airspace consolidation and ground glass opacity, right greater than left. The patient is quite alert and she is oriented. She denies chest pain or muscle pain or muscle aches or joint pains. A 2-D echocardiogram is being performed currently. The patient has no history of IV drug use. The patient's mom mentioned that while she was a child she had problems with asthma and as she grew up it became more exercise induced and then she was free of attacks for many years. The patient is afebrile. She denies sore throat prior to this presentation. The patient denies exposure to toxic drug to toxic chemicals. No recent travels. PAST MEDICAL HISTORY Seizure. ALLERGIES NO KNOWN DRUG ALLERGIES. MEDICATIONS 1. Vancomycin. 2. Piperacillin / Tazobactam. 3. Azithromycin. 4. DuoNeb. SOCIAL HISTORY Denies tobacco, alcohol or illicit drugs. FAMILY HISTORY Noncontributory. REVIEW OF SYSTEMS Her review of systems, pertinent mentioned above history of present illness. PHYSICAL EXAMINATION GENERAL: This is a well-developed muscular female in no acute distress. She is awake and alert and oriented. VITAL SIGNS: Include temperature 98.7, heart rate 87, BP 123/58. Respirations 33. HEENT: Head is atraumatic. Extraocular movements grossly intact, pupils reactive to light. No icterus. No conjunctival erythema. Nose without bleeding. Oropharynx moist mucosa. No visible lesions. NECK: Supple. No adenopathy or swelling. LUNGS: Coarse rhonchi bilateral. HEART: Regular S1-S2. No audible murmurs or rubs or gallops. ABDOMEN: Bowel sounds present, soft, no tenderness appreciated. RECTAL: Not performed. EXTREMITIES: No clubbing or cyanosis or edema. The patient has increased muscle bulk throughout. No calf tenderness. No embolic phenomena. SKIN: No rash. NEUROLOGIC: Alert and oriented. No gross focal findings. LABORATORY DATA WBC 25.6, platelet 337, 90% neutrophils, 2% lymphocytes, 5% monocytes, hemoglobin 14.1. Creatinine 1.10, BUN 14, estimated GFR 62, sodium 140. Liver function tests normal. Total CK 169. IMPRESSION 1. Bilateral lung infiltrates suggesting probable pneumonia versus autoimmune disease given the ground-glass opacity. This could also likely be due to atypical pneumonia. Rule out opportunistic infection. 2. The patient also has acute kidney disease stage II. 3. Hemoptysis. 4. Seizure. Probably unrelated to the pulmonary disease process. RECOMMENDATIONS 1. Continue vancomycin. 2. Continue piperacillin/Tazobactam. 3. Continue azithromycin. 4. Monitor HIV test. 5. Monitor Legionella test. 6. Monitor Mycoplasma serology. 7. Monitor 2-D echocardiogram which has been ordered. 8. Follow clinical status. Thank you this consultation. I will follow the patient's progress and make further recommendations on followup if necessary. Makenna Moreno MD FD/MARQUES /5:21 PM /10:08 PM NANCY
[2016-11-04] VITALS (20 sets, daily range): BP systolic 102–133; BP diastolic 53–73; PULSE 79–118; RESP 12–35; TEMP 98.3–99.1; O2SAT 92–98
[2016-11-04] MEDS: PIPERACIL-TAZO 4.5 GM PREMIX 100 ML IV SCH ×5 (00:34→23:45)
[2016-11-04] MEDS: VANCOMYCIN 1,000 MG/NS 250 ML IV SCH ×4 (01:00→12:15)
[2016-11-04] MEDS: RESP: ALBUTEROL 2.5 MG/IPRATROPIUM 0.5 MG NEB (SCH) INH ×4 (03:42→19:44)
[2016-11-04] MEDS: CHLORHEXIDINE GLUCONATE 2 % 1 PACK (2 CLOTHS)(taper/protocol) TOPICAL SCH (04:00)
[2016-11-04] MEDS: SODIUM CHLOR 0.9% 1000 ML INJ 1,000 ML IV SCH (04:09)
[2016-11-04 05:34] LABS: BLOOD GAS BASE EXCESS -1.7 mmol/L (-2-2); BLOOD GAS CARBOXYHEMOGLOBIN 1.7 % (0-4); BLOOD GAS HCO3 22 mmol/L (22-26); BLOOD GAS O2 HGB SATURATION 95 % (90-100); BLOOD GAS OXYGEN CONTENT 17.1 Vol % (12.0-20.0); BLOOD GAS PCO2 32 mmHg (38-42); BLOOD GAS PO2 87 mmHg (61-120); BLOOD GAS TOTAL HGB 12.8 G/DL (12.0-16.0); CRITICAL VALUE NO; DRAW SITE LT RADIAL; LITER FLOW 4 L/M; NUMBER OF ARTERIAL PUNCTURES 2; OXYGEN DEVICE NASAL CANNULA; STAT NO; TEMP CORR TO 98.6; ULNAR PULSE PRESENT
[2016-11-04 05:48] LABS: HEMATOCRIT 37.6 % (35.0-46.0); MEAN CELL VOLUME 88.3 FL (80.0-100.0); MEAN CORPUSCULAR HEMOGLOBIN 29.4 PG (27.0-34.0); MEAN CORPUSCULAR HGB CONC 33.3 % (32.0-36.0); PLATELET COUNT 274 TH/MM3 (150-450); RED BLOOD COUNT 4.26 MIL/MM3 (4.00-5.30); RED CELL DISTRIBUTION WIDTH 12.7 % (11.6-17.2); REVIEW FLAG FINAL; WHITE BLOOD COUNT 14.6 TH/MM3 (4.0-11.0)
[2016-11-04 06:03] LABS: BICARBONATE 25.5 MEQ/L (21.0-32.0); POTASSIUM 3.7 MEQ/L (3.5-5.1)
--- NOTE | 2016-11-04 08:13 | HHI.CCPN ---
Subjective Remarks/Hospital Course This is a 21-year-old female with a completely unremarkable past medical history who presents with a subacute history of altered mental status episodes which she states she was diagnosed as having seizures around [facility]. She had one of these episodes last night and since then has been feeling more weak and fatigued. She presents today in the emergency department and was found to be severely hypoxemic with SPO2 in the 70s. Chest x-ray showed bilateral pulmonary infiltrates. Chest CT angiography demonstrated multiple areas of groundglass opacities in all lung savage, negative for PE. 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 She states that over the past 2 weeks she's been taking an oral over-the- counter muscle building supplementation that she got from a [employer] store. She denies taking IV steroids. She denies any shortness of breath, and felt feels that she does not feel like she can't catch her breath. She denies chest pain, fever, chills. She denies night sweats. She is sexually active with 1 partner in the last 12 months. She takes control. She usually uses condoms, but not all the time. She has never had an STD before. She is only been out of the country to the [facility], and not in the last 12 months. She is born and raised in [place]. She's never been to the [place]. She has never been tested for HIV. She denies any weight loss over the last few months. She as recently as 2 days prior to admission aggressively weight trained for an upcoming competition, and did at least 2 hours of strenuous cardiovascular activity. She has had no change in functional status.Her laboratory data is significant for a leukocytosis with a white count 25,000, negative troponin, BNP of 40, lactate of 1.8, negative urine drug screen. Critical care medicine is consulted to evaluate and manage her hypoxemia. She is on a nonrebreather on my evaluation. 11/04 Patient is down to 4L oxygen with good sats. Afebrile. WBC trending down. Objective Vital Signs Date Time Temp Pulse Resp B/P Pulse Ox O2 Delivery O2 Flow Rate FiO2 11/04/16 06:00 93 11/04/16 04:00 99.1 23 118/58 95 11/04/16 00:00 Nasal Cannula 4.00 Intake and Output 11/03/16 11/03/16 11/03/16 07:59 15:59 23:59 Intake Total 1225 ml Output Total 400 ml 1000 ml Balance -400 ml 225 ml Result Diagram: 11/04/16 0510 11/04/16 0510 Other Results Laboratory Tests Test 11/03/16 11/03/16 11/03/16 11/03/16 11:30 12:35 13:30 15:00 White Blood Count 25.6 TH/MM3 Red Blood Count 4.79 MIL/MM3 Hemoglobin 14.1 GM/DL Hematocrit 42.4 % Mean Corpuscular Volume 88.6 FL Mean Corpuscular Hemoglobin 29.4 PG Mean Corpuscular Hemoglobin 33.2 % Concent Red Cell Distribution Width 12.5 % Platelet Count 337 TH/MM3 Mean Platelet Volume 7.5 FL Neutrophils (%) (Auto) 92.1 % Lymphocytes (%) (Auto) 2.1 % Monocytes (%) (Auto) 5.5 % Eosinophils (%) (Auto) 0.1 % Basophils (%) (Auto) 0.2 % Neutrophils # (Auto) 23.6 TH/MM3 Lymphocytes # (Auto) 0.5 TH/MM3 Monocytes # (Auto) 1.4 TH/MM3 Eosinophils # (Auto) 0.0 TH/MM3 Basophils # (Auto) 0.1 TH/MM3 CBC Comment DIFF FINAL Differential Comment Prothrombin Time 11.9 SEC Prothromb Time International 1.1 RATIO Ratio Activated Partial 22.9 SEC Thromboplast Time Sodium Level 140 MEQ/L Potassium Level 4.0 MEQ/L Chloride Level 106 MEQ/L Carbon Dioxide Level 25.7 MEQ/L Anion Gap 8 MEQ/L Blood Urea Nitrogen 14 MG/DL Creatinine 1.10 MG/DL Estimat Glomerular Filtration 62 ML/MIN Rate Random Glucose 148 MG/DL Calcium Level 8.5 MG/DL Magnesium Level 1.7 MG/DL Total Bilirubin 0.4 MG/DL Aspartate Amino Transf 22 U/L (AST/SGOT) Alanine Aminotransferase 22 U/L (ALT/SGPT) Alkaline Phosphatase 59 U/L Total Creatine Kinase 169 U/L Creatine Kinase MB 1.4 NG/ML Troponin I LESS THAN 0.02 NG/ML B-Type Natriuretic Peptide 40 PG/ML Total Protein 6.5 GM/DL Albumin 3.8 GM/DL Human Chorionic Gonadotropin, LESS THAN 1 Quant MIU/ML Blood Gas Puncture Site LT RADIAL Blood Gas Patient Temperature 98.6 Blood Gas HCO3 24 mmol/L Blood Gas Base Excess -0.4 mmol/L Blood Gas Oxygen Saturation 94 % Arterial Blood pH 7.41 Arterial Blood Partial 38 mmHg Pressure CO2 Arterial Blood Partial 75 mmHG Pressure O2 Arterial Blood Oxygen Content 18.5 Vol % Arterial Blood 1.1 % Carboxyhemoglobin Arterial Blood Methemoglobin 0.5 % Blood Gas Hemoglobin 14.0 G/DL Oxygen Delivery Device Non-Rebreathing Mask Blood Gas Liter Flow 15 L/M Lactic Acid Level 1.8 mmol/L Urine Color YELLOW Urine Turbidity CLEAR Urine pH 7.0 Urine Specific [place] GREATER THAN 1.035 Urine Protein TRACE mg/dL Urine Glucose (UA) NEG mg/dL Urine Ketones NEG mg/dL Urine Occult Blood NEG Urine Nitrite NEG Urine Bilirubin NEG Urine Urobilinogen LESS THAN 2.0 MG/DL Urine Leukocyte Esterase NEG Urine RBC 1 /hpf Urine WBC 2 /hpf Urine Squamous Epithelial 2 /hpf Cells Urine Bacteria RARE /hpf Urine Mucus FEW /lpf Microscopic Urinalysis Comment CATH-CULTURE IND Urine Opiates Screen NEG Urine Barbiturates Screen NEG Urine Amphetamines Screen NEG Urine Benzodiazepines Screen NEG Urine Cocaine Screen NEG Urine Cannabinoids Screen NEG Test 11/03/16 11/04/16 11/04/16 16:30 05:10 05:20 Nasal Screen MRSA (PCR) MRSA NOT DETECTED White Blood Count 14.6 TH/MM3 Red Blood Count 4.26 MIL/MM3 Hemoglobin 12.5 GM/DL Hematocrit 37.6 % Mean Corpuscular Volume 88.3 FL Mean Corpuscular Hemoglobin 29.4 PG Mean Corpuscular Hemoglobin 33.3 % Concent Red Cell Distribution Width 12.7 % Platelet Count 274 TH/MM3 Mean Platelet Volume 7.4 FL Sodium Level 142 MEQ/L Potassium Level 3.7 MEQ/L Chloride Level 108 MEQ/L Carbon Dioxide Level 25.5 MEQ/L Anion Gap 9 MEQ/L Blood Urea Nitrogen 9 MG/DL Creatinine 0.92 MG/DL Estimat Glomerular Filtration 76 ML/MIN Rate Random Glucose 107 MG/DL Calcium Level 7.9 MG/DL Blood Gas Puncture Site LT RADIAL Blood Gas Patient Temperature 98.6 Blood Gas HCO3 22 mmol/L Blood Gas Base Excess -1.7 mmol/L Blood Gas Oxygen Saturation 95 % Arterial Blood pH 7.44 Arterial Blood Partial 32 mmHg Pressure CO2 Arterial Blood Partial 87 mmHg Pressure O2 Arterial Blood Oxygen Content 17.1 Vol % Arterial Blood 1.7 % Carboxyhemoglobin Arterial Blood Methemoglobin 1.0 % Blood Gas Hemoglobin 12.8 G/DL Oxygen Delivery Device NASAL CANNULA Blood Gas Liter Flow 4 L/M Imaging Last Impressions Chest X-Ray 11/03/16 1115 Signed Impressions: Service Date/Time: Thursday, November 03, 2016 11:13 - CONCLUSION: Bilateral airspace consolidation, right greater than left. Given the history of recent seizure, differential diagnosis includes a neurogenic pulmonary edema, aspiration, or infection. Seb Davis MD CT Angiography 11/03/16 1115 Signed Impressions: Service Date/Time: Thursday, November 03, 2016 13:07 - CONCLUSION: 1. Examination is suboptimal for evaluation for PE. This is secondary to poor opacification of the pulmonary arteries likely due to bolus timing. No central PE is identified. If there is persistent clinical concern for PE, consider VQ scan or repeat attempt at a repeat study. 2. Moderate to severe bilateral airspace consolidation and groundglass opacity, right greater than left. Appearance is nonspecific. This could represent atypical pulmonary edema, organizing pneumonia, or other nonspecific inflammatory processes. Consider followup to confirm resolution. Seb Davis MD Objective Remarks GENERAL: PAtient is 21 yo lying in be din NAD SKIN: Warm and dry. HEAD: Normocephalic. EYES: No scleral icterus. No injection or drainage. NECK: Supple, trachea midline. No JVD or lymphadenopathy. CARDIOVASCULAR:Tachycardic without murmurs, gallops, or rubs. RESPIRATORY: Breath sounds equal bilaterally. No accessory muscle use. GASTROINTESTINAL: Abdomen soft, non-tender, nondistended. MUSCULOSKELETAL: No cyanosis, or edema. BACK: Nontender without obvious deformity. No CVA tenderness. Neuro: Awake and alert. A/P Assessment and Plan 1)Acute hypoxic respiratory failure 2)Bilateral groundglass pulmonary consolidations ddx: Infectious process vs organizing pneumonia vs non-specific inflammatory process 3)Leukocytosis..trending down 4)Mild MARYANN- improved Neuro; Awake and alert, no recurrent seizures. Place on Ativan 1mg Q4 PRN seizures Neuro eval. UDS is negative. Check CT brain Pulm: Wean down oxygen as royal keep sat >92% Bronchodilators, place on Solumederol 60mg Q8 NIPPV PRN for resp distress. Consult pulm- patient might need a bronch with BAL. Check CXR today, check YOANA, RF, ANCA, Jamaal level, Scl 70, Complements levels, SSA/SSB CV: Monitor HR and BP keep MAP>65mmHg For 2D echo to eval LV function : Monitor renal function, electrolytes replacement as needed. GI: Start PO regular diet ID: Continue with abx per ID ( Vanco, Zosyn, Azithromycin) Monitor for signs of infections ( Fever, WBC) WBC trending down Strep pneumonia and Legionella urinary AG negative Follow up on Chlamydia, Mycoplasma titers, Histo Ag pending Endo: SSI if needed for glycemic control Heme: Monitor CBC GI prophylaxis- on PO diet DVT prophylaxis- SCD's, place on Heparin SQ if CT brain is negative Will sign off and transfer care to [facility] Level 3 Lavelle Aguilar MD November 04, 2016 08:12
[2016-11-04] MEDS ORDERED: LORazepam 2 MG/ML VIAL IV PUSH PRN (08:15)
--- NOTE | 2016-11-04 08:48 | RADRPT ---
EXAM DATE/TIME: 11/04/2016 08:11 [facility] COMPARISON: CHEST SINGLE AP, November 03, 2016, 11:13. INDICATIONS : Short of breath. Chest discomfort. MEDICAL HISTORY : Seizures. SURGICAL HISTORY : None. ENCOUNTER: Initial ACUITY: 1 day PAIN SCORE: 2/10 LOCATION: Left middle chest FINDINGS: A single view of the chest demonstrates bilateral patchy airspace disease greater in the right perihi lar region. Osseous structures are intact. CONCLUSION: Bilateral patchy airspace disease greater in the right perihilar region, slightly more prominent on c urrent study. Josef Arnold MD on November 04, 2016 at 8:46 Board Certified Radiologist. This report was verified electronically.
[2016-11-04] MEDS: methylPREDNISolone SOD SUCC 125 MG/2 ML VIAL IV PUSH SCH ×2 (09:00→15:43)
--- NOTE | 2016-11-04 09:41 | MB ---
cc: KIKI SWANSON M.D. DATE OF CONSULTATION: 11/04/2016 REASON FOR CONSULTATION Bilateral pneumonia. HISTORY OF PRESENT ILLNESS Ms. Tiwari is a 21-year-old female who presented to the emergency room with a seizure disorder. The patient was noted to be significantly hypoxemic. Her chest x-ray revealed bilateral lung infiltrates confirmed by CT scan of the chest. She denies history of fever or chills, however, does have blood-tinged sputum. No history of TB or previous industrial exposure. No history of IV drug use. PAST MEDICAL HISTORY Seizure disorder. MEDICATIONS Medications at present: 1. Vancomycin. 2. Piperacillin/tazobactam. 3. Zithromax. 4. DuoNeb. ALLERGIES None known to medication. FAMILY HISTORY Noncontributory. SOCIAL HISTORY Does not smoke. Does not drink. Does not use drugs. REVIEW OF SYSTEMS 12-point review of systems as per HPI. Past history otherwise negative. PHYSICAL EXAMINATION GENERAL: The patient is alert, in no distress, hungry, wants to eat. VITAL SIGNS: Temperature 98.6, respirations 20, blood pressure 120/60. HEENT: Unremarkable. Eyes without icterus. NECK: Without adenopathy or thyroid enlargement. CHEST: A few scattered rhonchi at the bases. CARDIAC: PMI distant. S1, S2 audible. No murmur or rub. ABDOMEN: Lax. Audible bowel sounds. EXTREMITIES: No clubbing, cyanosis or edema. LABORATORY White count 25,000. Sodium 142, potassium 3.7, BUN 9, creatinine 0.9. ABG today pH 7.44, PCO2 32, PO2 87 on 4 liters oxygen. The patient initially with severe hypoxemia with a PO2 of 75 on a nonrebreathing mask 100% oxygen. IMAGING CT scan of the chest: Bilateral lung infiltrates. IMPRESSION 1. Bilateral pneumonia. 2. Seizure disorder. PLAN The patient's bilateral pneumonia is atypical in appearance, whether this is related to an autoimmune process, infectious process or aspiration related to her seizure activity which would seem logical. At this point antibiotic therapy has been initiated and appropriately so. The patient is clinically doing well. Baseline collagen vascular studies would be appropriate. A short course of steroid therapy would be appropriate as well as long as she is covered with antibiotics. She is actually followed by Infectious Disease. Will follow-up her chest x-ray and if need be bronchoscopic examination will be undertaken. I do thank you for asking me to partake in Ms. Tiwari's care. MD SAV Hurst/REJI /9:20 AM /9:31 AM
[2016-11-04 11:16] LABS: RHEUMATOID FACTOR TRIGGER 45.7 IU/ML (0.0-14.9)
--- NOTE | 2016-11-04 11:17 | EC ---
Study Study Date:11/03/2016 STUDY CONCLUSIONS SUMMARY - Left ventricle: The cavity size was normal. Wall thickness was increased in a pattern of mild LVH. Systolic function was normal. The estimated ejection fraction was in the range of 60% to 65%. Wall motion was normal; there were no regional wall motion abnormalities. - Aortic valve: Valve area: 2.3cm^2(VTI). Valve area: 2.1cm^2 (Vmax). - Pulmonary arteries: Systolic pressure was mildly increased. PA peak pressure: 40mm Hg (S). If LV function is below 40, please consider prescribing an ACEI or ARB or document rationale for non-use. PROCEDURE DATA STUDY STATUS: Elective. Procedure: Transthoracic echocardiography. Image quality was good. Scanning was performed from the parasternal, apical, and subcostal acoustic windows. Study completion: The patient tolerated the procedure well. Transthoracic echocardiography. M-mode, complete 2D, complete spectral Doppler, and color Doppler. Height: Height: 68in. Weight: Weight: 153.7lb. Body mass index: BMI: 23.4kg/m^2. Body surface area: BSA: 1.83m^2. Patient status: Inpatient. CARDIAC ANATOMY LEFT VENTRICLE: The cavity size was normal. Wall thickness was increased in a pattern of mild LVH. Systolic function was normal. The estimated ejection fraction was in the range of 60% to 65%. Wall motion was normal; there were no regional wall motion abnormalities. AORTIC VALVE: Trileaflet; normal thickness leaflets. Doppler: Transvalvular velocity was within the normal range. There was no stenosis. No regurgitation. Valve area: 2.3cm^2(VTI). Indexed valve area: 1.26cm^2/m^2 (VTI). Valve area: 2.1cm^2 (Vmax). Indexed valve area: 1.15cm^2/m^2 (Vmax). Mean gradient: 4mm Hg (S). AORTA: Aortic root: The aortic root was normal in size. MITRAL VALVE: Mildly thickened leaflets, . Doppler: Transvalvular velocity was within the normal range. There was no evidence for stenosis. Trace regurgitation. Peak gradient: 5mm Hg (D). LEFT ATRIUM: The atrium was normal in size. RIGHT VENTRICLE: The cavity size was normal. Wall thickness was normal. PULMONIC VALVE: Doppler: Transvalvular velocity was within the normal range. There was no evidence for stenosis. No regurgitation. TRICUSPID VALVE: Structurally normal valve. Doppler: Transvalvular velocity was within the normal range. Trace to mild regurgitation. PULMONARY ARTERY: The main pulmonary artery was normal-sized. Systolic pressure was mildly increased. RIGHT ATRIUM: The atrium was normal in size. PERICARDIUM: There was no pericardial effusion. SYSTEMIC VEINS: Inferior vena cava: The vessel was normal in size. Patient weight: 153.7lb _Ejection fraction:_ 65-75% _Fractional shortening:_ 32% up to 5Kg 5-11.5Kg 11.6-22.9Kg 23-45Kg 45-57Kg Aortic Root 7-13 <17 13-22 17-27 17-27 LA diam 6-13 <23 24-38 33-47 37-40 RVID 10-17 7-15 7-15 7-18 8-17 LVIDd 12-22 <32 24-38 33-47 37-40 LVPW 2-4 3-6 5-7 6-8 7-8 IVS 2-4 3-6 5-7 6-8 7-8 BASIC MEASUREMENTS ADULT NORMAL Left ventricle LV internal dimension, ED, chordal 47.7 mm 43-52 level, PLAX LV internal dimension, ES, chordal 34.3 mm 23-38 level, PLAX Fractional shortening, chordal level, *28 % >29 PLAX LV posterior wall thickness, ED 6.89 mm IVS/LVPW ratio, ED 1 <1.3 Ventricular septum Septal thickness, ED 6.86 mm Aortic valve Leaflet separation 22 mm 15-26 Aorta Root diameter, ED 24 mm Left atrium Anterior-posterior dimension 30 mm Anterior-posterior dimension index 1.64 cm/m^2 <2.2 BASIC MEASUREMENTS ADULT NORMAL Aortic valve Leaflet separation 22 mm 15-26 DOPPLER MEASUREMENTS ADULT NORMAL Main pulmonary artery Pressure, S *40 mm Hg =30 Aortic valve Peak velocity, S 146 cm/s Mean velocity, S 93.9 cm/s VTI, S 26 cm Mean gradient, S 4 mm Hg Valve area, VTI 2.3 cm^2 Valve area index, VTI 1.26 cm^2/m^2 Valve area, Vmax 2.1 cm^2 Valve area index, Vmax 1.15 cm^2/m^2 Mitral valve Peak E-wave velocity 115 cm/s Peak A-wave velocity 61.7 cm/s Deceleration time *137 ms 150-230 Peak gradient, D 5 mm Hg Peak E/A ratio 1.9 Tricuspid valve Regurgitant peak velocity 286 cm/s Peak RV-RA gradient, S 33 mm Hg Maximal regurgitant velocity 286 cm/s Systemic veins Estimated CVP 10 mm Hg Right ventricle RV pressure, S *43 mm Hg <30 Pulmonic valve Peak velocity, S 81.2 cm/s LEGEND: Mean values are shown as u=mean value. Asterisk (*) eddy values outside specified normal range. Prepared and signed by Binh Mcadams [id number]
--- NOTE | 2016-11-04 13:05 | RADRPT ---
EXAM DATE/TIME: 11/04/2016 12:52 [facility] COMPARISON: CT BRAIN W/O CONTRAST, September 28, 2016, 11:09. INDICATIONS : Seizure along with hypoxic respiratory RADIATION DOSE: 34.15 CTDIvol (mGy) MEDICAL HISTORY : Seizures. SURGICAL HISTORY : None. ENCOUNTER: Subsequent ACUITY: 1 month PAIN SCALE: 3/10 LOCATION: cranial TECHNIQUE: Multiple contiguous axial images were obtained of the head. Using automated exposure control and adj ustment of the mA and/or kV according to patient size, radiation dose was kept as low as reasonably a chievable to obtain optimal diagnostic quality images. FINDINGS: CEREBRUM: The ventricles are normal. No evidence of midline shift, mass lesion, hemorrhage or acute infarction . No extra-axial fluid collections are seen. POSTERIOR FOSSA: The cerebellum and brainstem demonstrate no abnormality. The 4th ventricle is midline. The cerebell opontine angle is unremarkable. EXTRACRANIAL: The visualized sinuses are clear. SKULL: The calvaria is intact. No evidence of skull fracture. CONCLUSION: Negative noncontrast head CT. No acute finding is identified. If symptoms continue consider followup with MRI. Seb Davis MD on November 04, 2016 at 13:00 Board Certified Radiologist. This report was verified electronically.
[2016-11-04] MEDS: AZITHROMYCIN INJ 500 MG in SODIUM CHLOR 0.9% 250 ML INJ 250 ML IV SCH (15:00)
--- NOTE | 2016-11-04 15:09 | PD.CONS ---
History of Present Illness Service Neurology Consult Requested [facility] Reason for Consult sz Primary Care Physician No Primary Care Physician History of Present Illness 21-year-old female admitted for confusion and resp distress. seen [facility] and in the icu. found to have ground glass opacities. partner describes pt having 2 gtc's out of sleep. tonic posture/stiffening with post-ictal confusion. pt has had about 5 auras this past Thursday but no overt sz. describes it as her stomach sinking, difficulty speaking. she remembers having this in high school as well. ct brain negative. 09/28/2016 seen in ER for possible seizure. referred for outpatient neurological evaluation. she went to see Dr. Machuca. he ordered an mri brain scan and eeg. she never completed the eeg.she is not on any sz meds. 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 no family hx of sz's. 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 Review of Systems as above/admit hp Past Family Social History Allergies: Coded Allergies: No Known Allergies (Verified , 11/03/16) Past Medical History Questionably new diagnosis of seizures since September 2016. Being managed as an outpatient by a neurologist Past Surgical History None Reported Medications Oral contraceptives Active Ordered Medications See MAR Family History breast cancer Social History Never smoked. Does not drink alcohol. Review of Systems All other ROS: ROS reviewed as documented in chart Past Family Social History Allergies: Coded Allergies: No Known Allergies (Verified , 11/03/16) Active Ordered Medications Current Medications Medications (Trade) Dose Ordered Sig/Arielle Route Start Time Stop Time Status Last Admin (NS Flush) 2 ml UNSCH PRN IVF 11/03/16 11:15 Magnesium Oxide 800 mg 800 mg UNSCH PRN PO 11/03/16 15:00 Magnesium Sulfate 4 gm/Sodium Chloride 100 ml @ 50 mls/hr UNSCH PRN IV 11/03/16 15:00 Magnesium Sulfate 2 gm/Sodium Chloride 100 ml @ 50 mls/hr UNSCH PRN IV 11/03/16 15:00 Potassium Chloride 100 ml @ 50 mls/hr Q2H PRN IV 11/03/16 15:00 Potassium Chloride 100 ml @ 50 mls/hr Q2H PRN IV 11/03/16 15:00 Potassium Chloride 100 ml @ 50 mls/hr Q2H PRN IV 11/03/16 15:00 (KCl 40 Meq Premix Inj) 100 ml @ 25 mls/hr UNSCH PRN IV 11/03/16 15:00 (K-Phos) 2,000 mg Q4H PRN PO 11/03/16 15:00 Potassium Phosphate 2000 mg 2,000 mg UNSCH PRN PO/TUBE 11/03/16 15:00 Sodium Phosphate 30 mmol/Sodium Chloride 250 ml @ 42 mls/hr UNSCH PRN IV 11/03/16 15:00 Pharmacy Profile Note 0 ml @ 0 mls/hr UNSCH OTHER 11/03/16 15:00 Piperacillin Sod/ Tazobactam Sod 100 ml @ 200 mls/hr Q6H IV 11/03/16 18:00 11/04/16 12:00 Azithromycin 500 mg/Sodium Chloride 250 ml @ 250 mls/hr Q24H IV 11/03/16 15:00 11/03/16 15:58 (Vancomycin Inj/ NS 250 ml Inj) 250 ml @ 250 mls/hr Q12H IV 11/04/16 01:00 11/04/16 12:15 Miscellaneous Information SPECIFIC LAB TO BE VERONIKA... ONCE ONCE .XX 11/05/16 00:45 11/05/16 00:46 Miscellaneous Information Patient in critical care unit? Ass... [id number] .XX 11/03/16 19:15 11/03/16 19:15 (Chlorhexidine 2% Cloth) 3 pack DAILY@04 TOPICAL 11/04/16 04:00 11/08/16 04:01 11/04/16 04:00 (Chlorhexidine 2% Cloth) 3 pack UNSCH PRN TOPICAL 11/03/16 19:15 11/08/16 19:12 (SoluMEDROL INJ) 60 mg Q8H IV PUSH 11/04/16 09:00 11/04/16 09:00 (Ativan Inj) 1 mg Q4H PRN IV PUSH 11/04/16 08:15 Exam I&O / VS 11/03/16 11/03/16 11/04/16 14:59 22:59 06:59 Intake Total 2575 ml Output Total 400 ml 1700 ml Balance -400 ml 875 ml Intake Oral 1220 ml IV Total 1355 ml Output Urine Total 400 ml 1700 ml Stool Total 0 ml # Voids 1 Vital Signs Date Time Temp Pulse Resp B/P Pulse Ox O2 Delivery O2 Flow Rate FiO2 11/04/16 12:00 102 11/04/16 10:00 93 11/04/16 08:00 98.3 91 13 120/62 95 11/04/16 08:00 91 11/04/16 07:00 95 Nasal Cannula 4.00 11/04/16 06:00 93 11/04/16 04:00 99.1 102 23 118/58 95 11/04/16 04:00 102 11/04/16 03:00 81 32 114/58 92 11/04/16 02:00 79 11/04/16 02:00 91 30 114/55 92 11/04/16 01:00 87 23 113/58 94 11/04/16 00:00 93 Nasal Cannula 4.00 11/04/16 00:00 80 12 113/57 93 11/04/16 00:00 89 11/03/16 23:00 91 20 127/81 95 11/03/16 22:00 80 11/03/16 22:00 93 18 124/58 94 11/03/16 21:00 113 44 129/60 93 11/03/16 20:45 96 Nasal Cannula 4.00 11/03/16 20:00 70 11/03/16 20:00 94 Simple Mask 6.00 11/03/16 20:00 82 25 122/62 99 11/03/16 18:00 82 11/03/16 16:43 99 Non-Rebreather 12.00 11/03/16 15:43 70 28 110/56 100 Non-Rebreather 15 General: Alert and Oriented, No acute distress Eye: EOMI Respiratory: Non-labored respirations Cardiology: Normal rate Neurologic: Alert, Oriented, Normal sensory, Normal motor, No focal defects, CN II-XII intact, Gag reflex normal, Normal DTR's Psychiatric: Cooperative, Appropriate mood & affect, Normal judgement, Non- suicidal Review/Management Diagnosis/Plan: (1) Seizure Plan: possible complex-partial seizures with 2/2 generalization; possibly temporal lobe onset recs would suggest sz med. keppra 250mg bid x 1 week, then increase to 500mg bid. she is reluctant to start sz meds. f/u eeg f/u with her neurologist, Dr. Machuca sign off; call if ? no driving/swimming alone/climbing heights x 6 months of being sz free (2) Acute respiratory failure with hypoxia Plan: ccm following Adam Sun MD November 04, 2016 15:09
--- NOTE | 2016-11-04 15:37 | HHI.IDPN ---
Note Infectious Disease Note Patient says she feels okay. Still coughs up blood tinged sputum. Gets SOB. On 2L nasal canula. Denies chest pain. Notes hip pain. Rheumatology titers markedly elevated. Afebrile. No additional seizure. HIV negative. Rheumatoid factor markedly elevated. Presented to the emergency department with sudden onset of seizures and shortness of breath. PAST MEDICAL HISTORY Seizure. ALLERGIES NO KNOWN DRUG ALLERGIES. ANTIBIOTICS: 1. Vancomycin. 2. Piperacillin / Tazobactam. 3. Azithromycin. OBJECTIVE: Vital Signs Date Time Temp Pulse Resp B/P Pulse Ox O2 Delivery O2 Flow Rate FiO2 11/04/16 12:00 102 11/04/16 10:00 93 11/04/16 08:00 98.3 91 13 120/62 95 11/04/16 08:00 91 11/04/16 07:00 95 Nasal Cannula 4.00 11/04/16 06:00 93 11/04/16 04:00 99.1 102 23 118/58 95 11/04/16 04:00 102 11/04/16 03:00 81 32 114/58 92 11/04/16 02:00 79 11/04/16 02:00 91 30 114/55 92 11/04/16 01:00 87 23 113/58 94 11/04/16 00:00 93 Nasal Cannula 4.00 11/04/16 00:00 80 12 113/57 93 11/04/16 00:00 89 11/03/16 23:00 91 20 127/81 95 11/03/16 22:00 80 11/03/16 22:00 93 18 124/58 94 11/03/16 21:00 113 44 129/60 93 11/03/16 20:45 96 Nasal Cannula 4.00 11/03/16 20:00 70 11/03/16 20:00 94 Simple Mask 6.00 11/03/16 20:00 82 25 122/62 99 11/03/16 18:00 82 11/03/16 16:43 99 Non-Rebreather 12.00 11/03/16 15:43 70 28 110/56 100 Non-Rebreather 15 11/03/16 11/03/16 11/04/16 14:59 22:59 06:59 Intake Total 2575 ml Output Total 400 ml 1700 ml Balance -400 ml 875 ml Intake Oral 1220 ml IV Total 1355 ml Output Urine Total 400 ml 1700 ml Stool Total 0 ml # Voids 1 Laboratory Tests Test 11/03/16 11/04/16 11:30 05:10 White Blood Count 25.6 TH/MM3 14.6 TH/MM3 Red Blood Count 4.79 MIL/MM3 4.26 MIL/MM3 Hemoglobin 14.1 GM/DL 12.5 GM/DL Hematocrit 42.4 % 37.6 % Mean Corpuscular Volume 88.6 FL 88.3 FL Mean Corpuscular Hemoglobin 29.4 PG 29.4 PG Mean Corpuscular Hemoglobin 33.2 % 33.3 % Concent Red Cell Distribution Width 12.5 % 12.7 % Platelet Count 337 TH/MM3 274 TH/MM3 Mean Platelet Volume 7.5 FL 7.4 FL Neutrophils (%) (Auto) 92.1 % Lymphocytes (%) (Auto) 2.1 % Monocytes (%) (Auto) 5.5 % Eosinophils (%) (Auto) 0.1 % Basophils (%) (Auto) 0.2 % Neutrophils # (Auto) 23.6 TH/MM3 Lymphocytes # (Auto) 0.5 TH/MM3 Monocytes # (Auto) 1.4 TH/MM3 Eosinophils # (Auto) 0.0 TH/MM3 Basophils # (Auto) 0.1 TH/MM3 CBC Comment DIFF FINAL Differential Comment Laboratory Tests Test 11/03/16 11/03/16 11/04/16 11:30 13:30 05:10 Sodium Level 140 MEQ/L 142 MEQ/L Potassium Level 4.0 MEQ/L 3.7 MEQ/L Chloride Level 106 MEQ/L 108 MEQ/L Carbon Dioxide Level 25.7 MEQ/L 25.5 MEQ/L Anion Gap 8 MEQ/L 9 MEQ/L Blood Urea Nitrogen 14 MG/DL 9 MG/DL Creatinine 1.10 MG/DL 0.92 MG/DL Estimat Glomerular Filtration 62 ML/MIN 76 ML/MIN Rate Random Glucose 148 MG/DL 107 MG/DL Calcium Level 8.5 MG/DL 7.9 MG/DL Magnesium Level 1.7 MG/DL Total Bilirubin 0.4 MG/DL Aspartate Amino Transf 22 U/L (AST/SGOT) Alanine Aminotransferase 22 U/L (ALT/SGPT) Alkaline Phosphatase 59 U/L Total Creatine Kinase 169 U/L Creatine Kinase MB 1.4 NG/ML Troponin I LESS THAN 0.02 NG/ML B-Type Natriuretic Peptide 40 PG/ML Total Protein 6.5 GM/DL Albumin 3.8 GM/DL Human Chorionic Gonadotropin, LESS THAN 1 Quant MIU/ML Lactic Acid Level 1.8 mmol/L Microbiology Date/Time Procedure Status Source Growth 11/03/16 12:25 Aerobic Blood Culture - Preliminary Resulted Blood Peripheral NO GROWTH IN 1 DAY 11/03/16 12:25 Anaerobic Blood Culture - Preliminary Resulted Blood Peripheral NO GROWTH IN 1 DAY 11/03/16 12:30 Aerobic Blood Culture - Preliminary Resulted Blood Peripheral NO GROWTH IN 1 DAY 11/03/16 12:30 Anaerobic Blood Culture - Preliminary Resulted Blood Peripheral NO GROWTH IN 1 DAY 11/03/16 15:00 Legionella Antigen - Final Complete Urine Clean Catch PRESUMPTIVE NEGATIVE FOR LEGIONELLA P... 11/03/16 15:00 Streptococcus pneumoniae Antigen (M - Final Complete Urine Clean Catch PRESUMPTIVE NEGATIVE FOR STREPTOCOCCU... 11/03/16 15:00 Urine Culture - Preliminary Resulted Urine Catheterized Urine NO GROWTH IN 24 HOURS. 11/03/16 17:45 Gram Stain - Final Resulted Sputum Expectorated Sputum 11/03/16 17:45 Sputum Culture - Preliminary Resulted Sputum Expectorated Sputum HEAVY GROWTH NORMAL RESPIRATORY SHANNAN... 11/03/16 17:45 Fungal Smear - Final Resulted Sputum Expectorated Sputum NO FUNGAL ELEMENTS SEEN. 11/03/16 17:45 Fungal Culture Resulted Sputum Expectorated Sputum Pending IMAGING: Head CT 11/04/16 0000 Signed Impressions: Service Date/Time: Friday, November 04, 2016 12:52 - CONCLUSION: Negative noncontrast head CT. No acute finding is identified. If symptoms continue consider followup with MRI. Seb Davis MD Chest X-Ray 11/04/16 0000 Signed Impressions: Service Date/Time: Friday, November 04, 2016 08:11 - CONCLUSION: Bilateral patchy airspace disease greater in the right perihilar region, slightly more prominent on current study. Josef Arnold MD CT Angiography 11/03/16 1115 Signed Impressions: Service Date/Time: Thursday, November 03, 2016 13:07 - CONCLUSION: 1. Examination is suboptimal for evaluation for PE. This is secondary to poor opacification of the pulmonary arteries likely due to bolus timing. No central PE is identified. If there is persistent clinical concern for PE, consider VQ scan or repeat attempt at a repeat study. 2. Moderate to severe bilateral airspace consolidation and groundglass opacity, right greater than left. Appearance is nonspecific. This could represent atypical pulmonary edema, organizing pneumonia, or other nonspecific inflammatory processes. Consider followup to confirm resolution. Seb Davis MD PHYSICAL EXAMINATION GENERAL: No acute distress. She is awake and alert and oriented. HEENT: Head is atraumatic. Extraocular movements grossly intact, pupils reactive to light. No icterus. No conjunctival erythema. Oropharynx moist mucosa. No visible lesions. NECK: Supple. LUNGS: Coarse rhonchi bilateral. HEART: Regular S1-S2. No audible murmurs or rubs or gallops. ABDOMEN: Bowel sounds present, soft, no tenderness appreciated. No hepatomegaly or splenomegaly appreciated. EXTREMITIES: No clubbing or cyanosis or edema. No calf tenderness. No embolic phenomena. SKIN: No rash. NEUROLOGIC: Alert and oriented. No gross focal findings. IMPRESSION 1. Bilateral lung infiltrates suggesting probable pneumonia versus autoimmune disease given the ground-glass opacity. This could also likely be due to atypical pneumonia, Organizing pneumonia. Sputum culture has normal shannan. 2. Acute kidney disease stage II. Improving. 3. Hemoptysis. 4. Seizure. RECOMMENDATIONS 1. Continue vancomycin. 2. Continue piperacillin/Tazobactam. 3. Continue azithromycin. 4. Monitor cultures. 5. Obtain procalcitonin level. 5. Follow clinical status. D/W [facility]. [facility]. Shubham Reynolds MD November 04, 2016 15:37
--- NOTE | 2016-11-04 15:43 | EKG ---
Date Performed: 11/03/2016 Time Performed: 11:18:25 PTAGE: 21 years EKG: SINUS TACHYCARDIA NONSPECIFIC T-WAVE ABNORMALITY ABNORMAL RHYTHM ECG Compared to prior trac ing no significant change PREVIOUS TRACING : 09/28/2016 10.10 DOCTOR: Gerry Perkins Interpretating Date/Time 11/04/2016 15:42:47
[2016-11-05] VITALS (14 sets, daily range): BP systolic 98–130; BP diastolic 51–62; PULSE 56–107; RESP 12–29; TEMP 97.9–98.6; O2SAT 91–96
[2016-11-05 00:29] LABS: HISTOPLASMA ANTIGEN UR RESULT Negative (Negative)
[2016-11-05] MEDS: methylPREDNISolone SOD SUCC 125 MG/2 ML VIAL IV PUSH SCH ×3 (00:42→17:28)
[2016-11-05] MEDS: VANCOMYCIN 1,000 MG/NS 250 ML IV SCH ×2 (00:43)
[2016-11-05] MEDS ORDERED: PHARMACY ORDERED LAB ONE (00:45)
[2016-11-05] MEDS: RESP: ALBUTEROL 2.5 MG/IPRATROPIUM 0.5 MG NEB (SCH) INH ×4 (03:49→20:43)
[2016-11-05] MEDS: CHLORHEXIDINE GLUCONATE 2 % 1 PACK (2 CLOTHS)(taper/protocol) TOPICAL SCH (04:00)
[2016-11-05] MEDS: PIPERACIL-TAZO 4.5 GM PREMIX 100 ML IV SCH ×3 (05:17→17:28)
[2016-11-05 07:01] LABS: AUTOMATED NEUTROPHIL # 17.9 TH/MM3 (1.8-7.7); BASOPHIL % 0.1 % (0.0-2.0); HEMATOCRIT 35.7 % (35.0-46.0); HEMO FLAGS DIFF FINAL; LYMPH % 2.9 % (9.0-44.0); LYMPHOCYTE # 0.6 TH/MM3 (1.0-4.8); MEAN CELL VOLUME 87.9 FL (80.0-100.0); MEAN CORPUSCULAR HEMOGLOBIN 29.3 PG (27.0-34.0); MEAN CORPUSCULAR HGB CONC 33.4 % (32.0-36.0); PLATELET COUNT 273 TH/MM3 (150-450); RED BLOOD COUNT 4.05 MIL/MM3 (4.00-5.30); RED CELL DISTRIBUTION WIDTH 12.7 % (11.6-17.2); WHITE BLOOD COUNT 19.3 TH/MM3 (4.0-11.0)
[2016-11-05 07:17] LABS: BICARBONATE 25.9 MEQ/L (21.0-32.0); POTASSIUM 3.9 MEQ/L (3.5-5.1)
[2016-11-05] MEDS ORDERED: VANCOMYCIN INJ 1,250 MG in SODIUM CHLOR 0.9% 250 ML INJ 250 ML IV SCH (10:00)
--- NOTE | 2016-11-05 10:13 | HHI.IDPN ---
Note Infectious Disease Note Patient says she feels okay. No hemoptysis today. On RA Notes pain in mid chest on deep inspiration. Afebrile. Rheumatology titers markedly elevated. Afebrile. No additional seizure. WBC elevated. HIV negative. Rheumatoid factor markedly elevated. Presented to the emergency department with sudden onset of seizures and shortness of breath. PAST MEDICAL HISTORY Seizure. ALLERGIES NO KNOWN DRUG ALLERGIES. ANTIBIOTICS: 1. Vancomycin. 2. Piperacillin / Tazobactam. 3. Azithromycin. OBJECTIVE: Vital Signs Date Time Temp Pulse Resp B/P Pulse Ox O2 Delivery O2 Flow Rate FiO2 11/05/16 08:37 94 11/05/16 06:00 56 11/05/16 04:00 97.9 86 19 98/55 93 11/05/16 04:00 86 11/05/16 02:00 57 11/05/16 00:00 97.9 74 12 101/58 95 11/05/16 00:00 74 11/04/16 22:00 81 11/04/16 22:00 103 27 110/60 94 11/04/16 21:00 114 34 102/53 94 11/04/16 20:00 118 11/04/16 20:00 98.5 118 22 103/54 97 11/04/16 20:00 97 Room Air 11/04/16 20:00 118 19 103/54 97 11/04/16 19:46 93 21 11/04/16 19:00 95 35 117/60 94 11/04/16 18:00 109 11/04/16 16:00 97 11/04/16 16:00 98.7 115 25 117/67 96 11/04/16 15:28 95 Nasal Cannula 1.00 11/04/16 14:00 105 11/04/16 12:00 98.5 100 18 133/73 98 11/04/16 12:00 102 11/04/16 11/04/16 11/05/16 15:00 23:00 07:00 Intake Total 2202 ml 800 ml 665 ml Output Total 750 ml 400 ml Balance 2202 ml 50 ml 265 ml Intake Oral 1440 ml 480 ml 300 ml IV Total 762 ml 320 ml 365 ml Output Urine Total 750 ml 400 ml # Voids 3 # Bowel Movements 1 0 Laboratory Tests Test 11/03/16 11/04/16 11/05/16 11:30 05:10 06:18 White Blood Count 25.6 TH/MM3 14.6 TH/MM3 19.3 TH/MM3 Red Blood Count 4.79 MIL/MM3 4.26 MIL/MM3 4.05 MIL/MM3 Hemoglobin 14.1 GM/DL 12.5 GM/DL 11.9 GM/DL Hematocrit 42.4 % 37.6 % 35.7 % Mean Corpuscular Volume 88.6 FL 88.3 FL 87.9 FL Mean Corpuscular Hemoglobin 29.4 PG 29.4 PG 29.3 PG Mean Corpuscular Hemoglobin 33.2 % 33.3 % 33.4 % Concent Red Cell Distribution Width 12.5 % 12.7 % 12.7 % Platelet Count 337 TH/MM3 274 TH/MM3 273 TH/MM3 Mean Platelet Volume 7.5 FL 7.4 FL 7.7 FL Neutrophils (%) (Auto) 92.1 % 93.0 % Lymphocytes (%) (Auto) 2.1 % 2.9 % Monocytes (%) (Auto) 5.5 % 4.0 % Eosinophils (%) (Auto) 0.1 % 0.0 % Basophils (%) (Auto) 0.2 % 0.1 % Neutrophils # (Auto) 23.6 TH/MM3 17.9 TH/MM3 Lymphocytes # (Auto) 0.5 TH/MM3 0.6 TH/MM3 Monocytes # (Auto) 1.4 TH/MM3 0.8 TH/MM3 Eosinophils # (Auto) 0.0 TH/MM3 0.0 TH/MM3 Basophils # (Auto) 0.1 TH/MM3 0.0 TH/MM3 CBC Comment DIFF FINAL DIFF FINAL Differential Comment Laboratory Tests Test 11/03/16 11/03/16 11/04/16 11/05/16 11:30 13:30 05:10 06:18 Sodium Level 140 MEQ/L 142 MEQ/L 140 MEQ/L Potassium Level 4.0 MEQ/L 3.7 MEQ/L 3.9 MEQ/L Chloride Level 106 MEQ/L 108 MEQ/L 105 MEQ/L Carbon Dioxide Level 25.7 MEQ/L 25.5 MEQ/L 25.9 MEQ/L Anion Gap 8 MEQ/L 9 MEQ/L 9 MEQ/L Blood Urea Nitrogen 14 MG/DL 9 MG/DL 10 MG/DL Creatinine 1.10 MG/DL 0.92 MG/DL 0.82 MG/DL Estimat Glomerular Filtration 62 ML/MIN 76 ML/MIN 87 ML/MIN Rate Random Glucose 148 MG/DL 107 MG/DL 152 MG/DL Calcium Level 8.5 MG/DL 7.9 MG/DL 8.4 MG/DL Magnesium Level 1.7 MG/DL Total Bilirubin 0.4 MG/DL Aspartate Amino Transf 22 U/L (AST/SGOT) Alanine Aminotransferase 22 U/L (ALT/SGPT) Alkaline Phosphatase 59 U/L Total Creatine Kinase 169 U/L Creatine Kinase MB 1.4 NG/ML Troponin I LESS THAN 0.02 NG/ML B-Type Natriuretic Peptide 40 PG/ML Total Protein 6.5 GM/DL Albumin 3.8 GM/DL Human Chorionic Gonadotropin, LESS THAN 1 Quant MIU/ML Lactic Acid Level 1.8 mmol/L Procalcitonin 1.48 ng/mL Microbiology Date/Time Procedure Status Source Growth 11/03/16 12:25 Aerobic Blood Culture - Preliminary Resulted Blood Peripheral NO GROWTH IN 1 DAY 11/03/16 12:25 Anaerobic Blood Culture - Preliminary Resulted Blood Peripheral NO GROWTH IN 1 DAY 11/03/16 12:30 Aerobic Blood Culture - Preliminary Resulted Blood Peripheral NO GROWTH IN 1 DAY 11/03/16 12:30 Anaerobic Blood Culture - Preliminary Resulted Blood Peripheral NO GROWTH IN 1 DAY 11/03/16 15:00 Legionella Antigen - Final Complete Urine Clean Catch PRESUMPTIVE NEGATIVE FOR LEGIONELLA P... 11/03/16 15:00 Streptococcus pneumoniae Antigen (M - Final Complete Urine Clean Catch PRESUMPTIVE NEGATIVE FOR STREPTOCOCCU... 11/03/16 15:00 Urine Culture - Final Complete Urine Catheterized Urine NO GROWTH IN 48 HOURS. 11/03/16 17:45 Gram Stain - Final Complete Sputum Expectorated Sputum 11/03/16 17:45 Sputum Culture - Final Complete Sputum Expectorated Sputum HEAVY GROWTH NORMAL RESPIRATORY SHANNAN 11/03/16 17:45 Fungal Smear - Final Resulted Sputum Expectorated Sputum NO FUNGAL ELEMENTS SEEN. 11/03/16 17:45 Fungal Culture Resulted Sputum Expectorated Sputum Pending Microbiology Date/Time Procedure Status Source Growth 11/03/16 12:25 Aerobic Blood Culture - Preliminary Resulted Blood Peripheral NO GROWTH IN 1 DAY 11/03/16 12:25 Anaerobic Blood Culture - Preliminary Resulted Blood Peripheral NO GROWTH IN 1 DAY 11/03/16 12:30 Aerobic Blood Culture - Preliminary Resulted Blood Peripheral NO GROWTH IN 1 DAY 11/03/16 12:30 Anaerobic Blood Culture - Preliminary Resulted Blood Peripheral NO GROWTH IN 1 DAY 11/03/16 15:00 Legionella Antigen - Final Complete Urine Clean Catch PRESUMPTIVE NEGATIVE FOR LEGIONELLA P... 11/03/16 15:00 Streptococcus pneumoniae Antigen (M - Final Complete Urine Clean Catch PRESUMPTIVE NEGATIVE FOR STREPTOCOCCU... 11/03/16 15:00 Urine Culture - Preliminary Resulted Urine Catheterized Urine NO GROWTH IN 24 HOURS. 11/03/16 17:45 Gram Stain - Final Resulted Sputum Expectorated Sputum 11/03/16 17:45 Sputum Culture - Preliminary Resulted Sputum Expectorated Sputum HEAVY GROWTH NORMAL RESPIRATORY SHANNAN... 11/03/16 17:45 Fungal Smear - Final Resulted Sputum Expectorated Sputum NO FUNGAL ELEMENTS SEEN. 11/03/16 17:45 Fungal Culture Resulted Sputum Expectorated Sputum Pending IMAGING: Head CT 11/04/16 0000 Signed Impressions: Service Date/Time: Friday, November 04, 2016 12:52 - CONCLUSION: Negative noncontrast head CT. No acute finding is identified. If symptoms continue consider followup with MRI. Seb Davis MD Chest X-Ray 11/04/16 0000 Signed Impressions: Service Date/Time: Friday, November 04, 2016 08:11 - CONCLUSION: Bilateral patchy airspace disease greater in the right perihilar region, slightly more prominent on current study. Josef Arnold MD CT Angiography 11/03/16 1115 Signed Impressions: Service Date/Time: Thursday, November 03, 2016 13:07 - CONCLUSION: 1. Examination is suboptimal for evaluation for PE. This is secondary to poor opacification of the pulmonary arteries likely due to bolus timing. No central PE is identified. If there is persistent clinical concern for PE, consider VQ scan or repeat attempt at a repeat study. 2. Moderate to severe bilateral airspace consolidation and groundglass opacity, right greater than left. Appearance is nonspecific. This could represent atypical pulmonary edema, organizing pneumonia, or other nonspecific inflammatory processes. Consider followup to confirm resolution. Seb Davis MD PHYSICAL EXAMINATION GENERAL: No acute distress. Awake and alert and oriented. HEENT: No icterus. No conjunctival erythema. Oropharynx moist mucosa. No visible lesions. No thrush. NECK: Supple. LUNGS: Coarse rhonchi bilateral. Better air movement. HEART: Regular S1-S2. No audible murmurs or rubs or gallops. ABDOMEN: Bowel sounds present, soft, no tenderness appreciated. No hepatomegaly or splenomegaly. EXTREMITIES: No clubbing or cyanosis or edema. No calf tenderness. No embolic phenomena. SKIN: No rash. NEUROLOGIC: Alert and oriented. No gross focal findings. IMPRESSION 1. Bilateral lung infiltrates suggesting probable pneumonia versus autoimmune disease given the ground-glass opacity. This could also likely be due to atypical pneumonia, Organizing pneumonia. Sputum culture has normal shannan. Procalcitonin level low. Suspect non infectious cause. 2. Acute kidney disease stage II. Improved. 3. Hemoptysis. 4. Seizure. 5. Leukocytosis likely secondary to steroids. RECOMMENDATIONS 1. Stop vancomycin. 2. Continue piperacillin/Tazobactam. 3. Continue azithromycin. 4. Monitor cultures. 5. Obtain Sed rate. 6. Follow clinical status. 7. Repeat CXR. 8. Given elevated Rheumatoid factor, consider Rheumatology evaluation. Shubham Reynolds MD November 05, 2016 10:13
--- NOTE | 2016-11-05 13:02 | HHI.PR ---
Subjective Remarks Pt states that she had a coughing spell after the breathing treatment but afterwards didn't cough much. Denies any fevers or chills, denies any CP/SOB but does say that whenever she takes deep breaths she gets some pains. has been using the IS. discussed w RN, no concerns at this time. Objective Vitals Vital Signs Date Time Temp Pulse Resp B/P Pulse Ox O2 Delivery O2 Flow Rate FiO2 11/05/16 10:00 77 11/05/16 08:37 94 11/05/16 08:00 70 11/05/16 08:00 98.1 70 26 113/57 94 11/05/16 07:00 98 Room Air 11/05/16 06:00 56 11/05/16 04:00 97.9 86 19 98/55 93 11/05/16 04:00 86 11/05/16 02:00 57 11/05/16 00:00 97.9 74 12 101/58 95 11/05/16 00:00 74 11/04/16 22:00 81 11/04/16 22:00 103 27 110/60 94 11/04/16 21:00 114 34 102/53 94 11/04/16 20:00 118 11/04/16 20:00 98.5 118 22 103/54 97 11/04/16 20:00 97 Room Air 11/04/16 20:00 118 19 103/54 97 11/04/16 19:46 93 21 11/04/16 19:00 95 35 117/60 94 11/04/16 18:00 109 11/04/16 16:00 97 11/04/16 16:00 98.7 115 25 117/67 96 11/04/16 15:28 95 Nasal Cannula 1.00 11/04/16 14:00 105 I/O 11/04/16 11/04/16 11/04/16 11/05/16 11/05/16 11/05/16 07:00 15:00 23:00 07:00 15:00 23:00 Intake Total 1350 ml 2202 ml 800 ml 665 ml Output Total 700 ml 750 ml 400 ml Balance 650 ml 2202 ml 50 ml 265 ml Intake Oral 500 ml 1440 ml 480 ml 300 ml IV Total 850 ml 762 ml 320 ml 365 ml Output Urine Total 700 ml 750 ml 400 ml # Voids 3 # Bowel Movements 1 0 Result Diagram: 11/05/16 0618 11/05/16 0618 Imaging Last Impressions Head CT 11/04/16 0000 Signed Impressions: Service Date/Time: Friday, November 04, 2016 12:52 - CONCLUSION: Negative noncontrast head CT. No acute finding is identified. If symptoms continue consider followup with MRI. Seb Davis MD Chest X-Ray 11/04/16 0000 Signed Impressions: Service Date/Time: Friday, November 04, 2016 08:11 - CONCLUSION: Bilateral patchy airspace disease greater in the right perihilar region, slightly more prominent on current study. Josef Arnold MD CT Angiography 11/03/16 1115 Signed Impressions: Service Date/Time: Thursday, November 03, 2016 13:07 - CONCLUSION: 1. Examination is suboptimal for evaluation for PE. This is secondary to poor opacification of the pulmonary arteries likely due to bolus timing. No central PE is identified. If there is persistent clinical concern for PE, consider VQ scan or repeat attempt at a repeat study. 2. Moderate to severe bilateral airspace consolidation and groundglass opacity, right greater than left. Appearance is nonspecific. This could represent atypical pulmonary edema, organizing pneumonia, or other nonspecific inflammatory processes. Consider followup to confirm resolution. Seb Davis MD Objective Remarks GENERAL: PAtient is 21 yo sitting up in bed, speaking with family members. CARDIOVASCULAR: Regular rate and rhythm with no murmurs. RESPIRATORY: Breath sounds equal bilaterally. No accessory muscle use. GASTROINTESTINAL: Abdomen soft, non-tender, nondistended. MUSCULOSKELETAL: moves extremities w no difficulties Neuro: Awake and alert. A/P Assessment and Plan 1)Acute hypoxic respiratory failure: Echo shows an EF of 60-65. See below 2)Bilateral groundglass pulmonary consolidations ddx: Infectious process vs organizing pneumonia vs non-specific inflammatory process. Currently on room air. Continue Bronchodilators, on Solumederol 60mg Q8 Pulmonology following. Considering bronchoscopy YOANA negative, RF elevated, C3 low, C4 normal, SSA/SSB/ANCA, Jamaal level, Scl 70 pending. Patient has been counseled to follow-up with her primary care physician as an outpatient and to obtain a referral to rheumatology as an outpatient. Continue with abx per ID (Zosyn, Azithromycin) status post vancomycin Monitor for signs of infections Strep pneumonia and Legionella urinary AG negative Follow up on Chlamydia, Mycoplasma titers, Histo Ag which are negative thus far 3)Leukocytosis.WBC up to 19.3 most likely secondary to steroid use 4)Mild MARYANN-resolved 5) seizures: Awake and alert, no recurrent seizures. Place on Ativan 1mg Q4 PRN seizures. neuro evaluated the pt and recommended keppra 250mg po BID x 1 week then increasing it to 500mg po bid however pt refuses to take this as it causes alopecia and did ask for another medication which doesn't have this side effect. I did discuss this w Dr. Sun and he recommended switching to tegretol, start 100mg po BID x 1 week then increase to 200mg po BID. appreciate input from neurology. EEG completed, final report pending. UDS is negative. CT head negative DVT prophylaxis: Ambulation Discharge Planning Encourage ambulation Transfer to regular floor Anticipate discharge in 1-2 days Sigrid Mccoy MD November 05, 2016 13:02 Heme: Monitor CBC GI prophylaxis- on PO diet DVT prophylaxis- SCD's, place on Heparin SQ if CT brain is negative Sigrid Mccoy MD November 05, 2016 13:02
--- NOTE | 2016-11-05 13:33 | RADRPT ---
EXAM DATE/TIME: 11/05/2016 13:05 [facility] COMPARISON: CHEST SINGLE AP, November 04, 2016, 8:11. INDICATIONS : Pneumonia. MEDICAL HISTORY : Seizures. SURGICAL HISTORY : None. ENCOUNTER: Subsequent ACUITY: 3 days PAIN SCORE: 0/10 LOCATION: chest FINDINGS: Significant interval clearance of bilateral infiltrates. Residual air space disease mainly in the per ihilar regions, slightly worse on the right than the left. No evidence of effusion. Cardiac contours are satisfactory. CONCLUSION: Significant improvement in aeration. Seb Vitale MD on November 05, 2016 at 13:30 Board Certified Radiologist. This report was verified electronically.
[2016-11-05] MEDS: AZITHROMYCIN INJ 500 MG in SODIUM CHLOR 0.9% 250 ML INJ 250 ML IV SCH (14:38)
--- NOTE | 2016-11-05 16:30 | HHI.PR ---
Subjective Remarks ALERT NO SOB OFF O2 CXRAY MARKEDLY IMPROVED Objective Vital Signs Date Time Temp Pulse Resp B/P Pulse Ox O2 Delivery O2 Flow Rate FiO2 11/05/16 14:00 107 11/05/16 12:00 89 11/05/16 12:00 98.3 86 29 130/62 91 11/05/16 10:00 77 11/05/16 08:37 94 11/05/16 08:00 70 11/05/16 08:00 98.1 70 26 113/57 94 11/05/16 07:00 98 Room Air 11/05/16 06:00 56 11/05/16 04:00 97.9 86 19 98/55 93 11/05/16 04:00 86 11/05/16 02:00 57 11/05/16 00:00 97.9 74 12 101/58 95 11/05/16 00:00 74 11/04/16 22:00 81 11/04/16 22:00 103 27 110/60 94 11/04/16 21:00 114 34 102/53 94 11/04/16 20:00 118 11/04/16 20:00 98.5 118 22 103/54 97 11/04/16 20:00 97 Room Air 11/04/16 20:00 118 19 103/54 97 11/04/16 19:46 93 21 11/04/16 19:00 95 35 117/60 94 11/04/16 18:00 109 I/O 11/04/16 11/04/16 11/04/16 11/05/16 11/05/16 11/05/16 07:00 15:00 23:00 07:00 15:00 23:00 Intake Total 1350 ml 2202 ml 800 ml 665 ml 1725 ml Output Total 700 ml 750 ml 400 ml 1200 ml Balance 650 ml 2202 ml 50 ml 265 ml 525 ml Intake Oral 500 ml 1440 ml 480 ml 300 ml 1440 ml IV Total 850 ml 762 ml 320 ml 365 ml 285 ml Output Urine Total 700 ml 750 ml 400 ml 1200 ml # Voids 3 # Bowel Movements 1 0 1 Result Diagram: 11/05/16 0618 11/05/16 0618 Objective Remarks GENERAL: SKIN: Warm and dry. HEAD: Atraumatic. Normocephalic. EYES: Pupils equal and round. No scleral icterus. No injection or drainage. ENT: No nasal bleeding or discharge. Mucous membranes pink and moist. NECK: Trachea midline. No JVD. CARDIOVASCULAR: Regular rate and rhythm. RESPIRATORY: No accessory muscle use. Clear to auscultation. Breath sounds equal bilaterally. GASTROINTESTINAL: Abdomen soft, non-tender, nondistended. Hepatic and splenic margins not palpable. MUSCULOSKELETAL: Extremities without clubbing, cyanosis, or edema. No obvious deformities. NEUROLOGICAL: Awake and alert. No obvious cranial nerve deficits. Motor grossly within normal limits. Five out of 5 muscle strength in the arms and legs. Normal speech. PSYCHIATRIC: Appropriate mood and affect; insight and judgment normal. Assessment and Plan Assessment and Plan ASS PNA , RESOLVING PLAN INCREASE ACTIVITY F/U CXY Serenity Benton MD November 05, 2016 16:30
[2016-11-06] VITALS (9 sets, daily range): BP systolic 96–112; BP diastolic 50–55; PULSE 51–100; RESP 20; TEMP 97.9–98.4; O2SAT 94–98
[2016-11-06] MEDS: PIPERACIL-TAZO 4.5 GM PREMIX 100 ML IV SCH ×2 (00:23→05:35)
[2016-11-06] MEDS: methylPREDNISolone SOD SUCC 125 MG/2 ML VIAL IV PUSH SCH ×2 (01:19→08:39)
[2016-11-06] MEDS: RESP: ALBUTEROL 2.5 MG/IPRATROPIUM 0.5 MG NEB (SCH) INH ×2 (03:27→08:00)
[2016-11-06 03:52] LABS: MYELOPEROXIDASE LESS THAN 1.0 AI (<1.0); PROTEINASE-3 LESS THAN 1.0 AI (<1.0)
[2016-11-06] MEDS: CHLORHEXIDINE GLUCONATE 2 % 1 PACK (2 CLOTHS)(taper/protocol) TOPICAL SCH (04:00)
[2016-11-06 06:54] LABS: AUTOMATED NEUTROPHIL # 16.3 TH/MM3 (1.8-7.7); BASOPHIL % 0.1 % (0.0-2.0); HEMATOCRIT 33.3 % (35.0-46.0); HEMO FLAGS DIFF FINAL; LYMPH % 3.4 % (9.0-44.0); LYMPHOCYTE # 0.6 TH/MM3 (1.0-4.8); MEAN CELL VOLUME 87.1 FL (80.0-100.0); MEAN CORPUSCULAR HEMOGLOBIN 29.9 PG (27.0-34.0); MEAN CORPUSCULAR HGB CONC 34.3 % (32.0-36.0); MONO % 5.5 % (0.0-8.0); PLATELET COUNT 295 TH/MM3 (150-450); RED BLOOD COUNT 3.82 MIL/MM3 (4.00-5.30); RED CELL DISTRIBUTION WIDTH 12.8 % (11.6-17.2)
[2016-11-06 07:12] LABS: BICARBONATE 26.5 MEQ/L (21.0-32.0)
[2016-11-06] MEDS ORDERED: PHARMACY ORDERED LAB ONE (09:45)
--- NOTE | 2016-11-06 10:05 | HHI.PR ---
Subjective Remarks Pt states she has a dry cough. She feels well, denies any CP/SOB/N/V wants to go home Objective Vitals Vital Signs Date Time Temp Pulse Resp B/P Pulse Ox O2 Delivery O2 Flow Rate FiO2 11/06/16 08:15 97.9 97 20 96/54 98 11/06/16 08:00 84 11/06/16 07:00 52 11/06/16 06:00 60 11/06/16 04:00 98.4 75 20 96/50 96 11/06/16 04:00 75 11/06/16 02:00 60 11/06/16 00:00 65 11/06/16 00:00 98.4 64 20 112/55 94 11/05/16 22:00 92 11/05/16 20:00 68 11/05/16 20:00 98.1 68 21 121/58 96 11/05/16 19:34 96 21 11/05/16 19:00 Room Air 11/05/16 18:00 74 11/05/16 16:00 97 11/05/16 16:00 98.6 97 28 101/51 95 11/05/16 14:00 107 11/05/16 12:00 89 11/05/16 12:00 98.3 86 29 130/62 91 I/O 11/05/16 11/05/16 11/05/16 11/06/16 11/06/16 11/06/16 07:00 15:00 23:00 07:00 15:00 23:00 Intake Total 665 ml 1725 ml 1200 ml 580 ml Output Total 400 ml 1200 ml Balance 265 ml 525 ml 1200 ml 580 ml Intake Oral 300 ml 1440 ml 1200 ml 480 ml IV Total 365 ml 285 ml 0 ml 100 ml Output Urine Total 400 ml 1200 ml # Voids 2 1 # Bowel Movements 1 Result Diagram: 11/06/16 0555 11/06/16 0555 Imaging Last Impressions Chest X-Ray 11/05/16 0000 Signed Impressions: Service Date/Time: Saturday, November 05, 2016 13:05 - CONCLUSION: Significant improvement in aeration. Seb Vitale MD Head CT 11/04/16 0000 Signed Impressions: Service Date/Time: Friday, November 04, 2016 12:52 - CONCLUSION: Negative noncontrast head CT. No acute finding is identified. If symptoms continue consider followup with MRI. Seb Davsi MD CT Angiography 11/03/16 1115 Signed Impressions: Service Date/Time: Thursday, November 03, 2016 13:07 - CONCLUSION: 1. Examination is suboptimal for evaluation for PE. This is secondary to poor opacification of the pulmonary arteries likely due to bolus timing. No central PE is identified. If there is persistent clinical concern for PE, consider VQ scan or repeat attempt at a repeat study. 2. Moderate to severe bilateral airspace consolidation and groundglass opacity, right greater than left. Appearance is nonspecific. This could represent atypical pulmonary edema, organizing pneumonia, or other nonspecific inflammatory processes. Consider followup to confirm resolution. Seb Davis MD Objective Remarks GENERAL: PAtient is 21 yo sitting up in bed CARDIOVASCULAR: Regular rate and rhythm with no murmurs. RESPIRATORY: Breath sounds equal bilaterally. No accessory muscle use. GASTROINTESTINAL: Abdomen soft, non-tender, nondistended. MUSCULOSKELETAL: moves extremities w no difficulties Neuro: Awake and alert. A/P Assessment and Plan 1)Acute hypoxic respiratory failure: Echo shows an EF of 60-65. See below 2)Bilateral groundglass pulmonary consolidations ddx: Infectious process vs organizing pneumonia vs non-specific inflammatory process. Currently on room air. Continue Bronchodilators, on Solumederol 60mg Q8, will d/c and switch to po prednisone Pulmonology following. YOANA negative, RF elevated, C3 low, C4 normal, SSA/SSB/ANCA, Jamaal level, Scl 70 so far all wnl. Patient has been counseled to follow-up with her primary care physician as an outpatient and to obtain a referral to rheumatology as an outpatient. Continue with abx per ID (Zosyn, Azithromycin) status post vancomycin Monitor for signs of infections Strep pneumonia and Legionella urinary AG negative Follow up on Chlamydia, Mycoplasma titers, Histo Ag which are negative thus far 3)Leukocytosis.WBC up to 18 most likely secondary to steroid use 4)Mild MARYANN-resolved 5) seizures: Awake and alert, no recurrent seizures. Place on Ativan 1mg Q4 PRN seizures. neuro evaluated the pt and recommended keppra 250mg po BID x 1 week then increasing it to 500mg po bid however pt refused to take this as it causes alopecia and did ask for another medication which doesn't have this side effect. I did discuss this w Dr. Sun and he recommended switching to tegretol, start 100mg po BID x 1 week then increase to 200mg po BID. appreciate input from neurology. thus far tolerating it well EEG completed, final report pending. UDS is negative. CT head negative DVT prophylaxis: Ambulation Discharge Planning Encourage ambulation will discuss w pulm and ID regarding d/c planning. Pt is hopeful to go home today Sigrid Mccoy MD November 06, 2016 10:05
[2016-11-06] MEDS ORDERED: AZIT250T3 PO (11:18)
[2016-11-06] MEDS ORDERED: CARB100C PO (11:18)
[2016-11-06] MEDS ORDERED: PRED20 PO (11:18)
--- NOTE | 2016-11-06 11:18 | HHI.IDPN ---
Note Infectious Disease Note Patient says she feels okay. Dry cough. On RA No chest pain or SOB. Afebrile. Rheumatology titers markedly elevated. Afebrile. No additional seizure. WBC still elevated. HIV negative. Rheumatoid factor markedly elevated. Presented to the emergency department with sudden onset of seizures and shortness of breath. PAST MEDICAL HISTORY Seizure. ALLERGIES NO KNOWN DRUG ALLERGIES. ANTIBIOTICS: 1. Azithromycin. 2. Piperacillin / Tazobactam. OBJECTIVE: Vital Signs Date Time Temp Pulse Resp B/P Pulse Ox O2 Delivery O2 Flow Rate FiO2 11/06/16 10:00 75 11/06/16 09:00 100 11/06/16 08:15 97.9 97 20 96/54 98 11/06/16 08:00 84 11/06/16 07:00 52 11/06/16 06:00 60 11/06/16 04:00 98.4 75 20 96/50 96 11/06/16 04:00 75 11/06/16 02:00 60 11/06/16 00:00 65 11/06/16 00:00 98.4 64 20 112/55 94 11/05/16 22:00 92 11/05/16 20:00 68 11/05/16 20:00 98.1 68 21 121/58 96 11/05/16 19:34 96 21 11/05/16 19:00 Room Air 11/05/16 18:00 74 11/05/16 16:00 97 11/05/16 16:00 98.6 97 28 101/51 95 11/05/16 14:00 107 11/05/16 12:00 89 11/05/16 12:00 98.3 86 29 130/62 91 11/05/16 11/05/16 11/06/16 15:00 23:00 07:00 Intake Total 1725 ml 1200 ml 580 ml Output Total 1200 ml Balance 525 ml 1200 ml 580 ml Intake Oral 1440 ml 1200 ml 480 ml IV Total 285 ml 0 ml 100 ml Output Urine Total 1200 ml # Voids 2 1 # Bowel Movements 1 Laboratory Tests Test 11/05/16 11/06/16 06:18 05:55 White Blood Count 19.3 TH/MM3 18.0 TH/MM3 Red Blood Count 4.05 MIL/MM3 3.82 MIL/MM3 Hemoglobin 11.9 GM/DL 11.4 GM/DL Hematocrit 35.7 % 33.3 % Mean Corpuscular Volume 87.9 FL 87.1 FL Mean Corpuscular Hemoglobin 29.3 PG 29.9 PG Mean Corpuscular Hemoglobin 33.4 % 34.3 % Concent Red Cell Distribution Width 12.7 % 12.8 % Platelet Count 273 TH/MM3 295 TH/MM3 Mean Platelet Volume 7.7 FL 7.9 FL Neutrophils (%) (Auto) 93.0 % 91.0 % Lymphocytes (%) (Auto) 2.9 % 3.4 % Monocytes (%) (Auto) 4.0 % 5.5 % Eosinophils (%) (Auto) 0.0 % 0.0 % Basophils (%) (Auto) 0.1 % 0.1 % Neutrophils # (Auto) 17.9 TH/MM3 16.3 TH/MM3 Lymphocytes # (Auto) 0.6 TH/MM3 0.6 TH/MM3 Monocytes # (Auto) 0.8 TH/MM3 1.0 TH/MM3 Eosinophils # (Auto) 0.0 TH/MM3 0.0 TH/MM3 Basophils # (Auto) 0.0 TH/MM3 0.0 TH/MM3 CBC Comment DIFF FINAL DIFF FINAL Differential Comment Erythrocyte Sedimentation Rate 7 mm/hr Laboratory Tests Test 11/05/16 11/06/16 06:18 05:55 Sodium Level 140 MEQ/L 141 MEQ/L Potassium Level 3.9 MEQ/L 4.0 MEQ/L Chloride Level 105 MEQ/L 106 MEQ/L Carbon Dioxide Level 25.9 MEQ/L 26.5 MEQ/L Anion Gap 9 MEQ/L 9 MEQ/L Blood Urea Nitrogen 10 MG/DL 14 MG/DL Creatinine 0.82 MG/DL 0.84 MG/DL Estimat Glomerular Filtration 87 ML/MIN 85 ML/MIN Rate Random Glucose 152 MG/DL 175 MG/DL Calcium Level 8.4 MG/DL 8.3 MG/DL Microbiology Date/Time Procedure Status Source Growth 11/03/16 12:25 Aerobic Blood Culture - Preliminary Resulted Blood Peripheral NO GROWTH IN 3 DAYS 11/03/16 12:25 Anaerobic Blood Culture - Preliminary Resulted Blood Peripheral NO GROWTH IN 3 DAYS 11/03/16 12:30 Aerobic Blood Culture - Preliminary Resulted Blood Peripheral NO GROWTH IN 3 DAYS 11/03/16 12:30 Anaerobic Blood Culture - Preliminary Resulted Blood Peripheral NO GROWTH IN 3 DAYS 11/03/16 15:00 Legionella Antigen - Final Complete Urine Clean Catch PRESUMPTIVE NEGATIVE FOR LEGIONELLA P... 11/03/16 15:00 Streptococcus pneumoniae Antigen (M - Final Complete Urine Clean Catch PRESUMPTIVE NEGATIVE FOR STREPTOCOCCU... 11/03/16 15:00 Urine Culture - Final Complete Urine Catheterized Urine NO GROWTH IN 48 HOURS. 11/03/16 17:45 Gram Stain - Final Complete Sputum Expectorated Sputum 11/03/16 17:45 Sputum Culture - Final Complete Sputum Expectorated Sputum HEAVY GROWTH NORMAL RESPIRATORY SHANNAN 11/03/16 17:45 Fungal Smear - Final Resulted Sputum Expectorated Sputum NO FUNGAL ELEMENTS SEEN. 11/03/16 17:45 Fungal Culture Resulted Sputum Expectorated Sputum Pending IMAGING: Chest X-Ray 11/05/16 0000 Signed Impressions: Service Date/Time: Saturday, November 05, 2016 13:05 - CONCLUSION: Significant improvement in aeration. Seb Vitale MD Head CT 11/04/16 0000 Signed Impressions: Service Date/Time: Friday, November 04, 2016 12:52 - CONCLUSION: Negative noncontrast head CT. No acute finding is identified. If symptoms continue consider followup with MRI. Seb Davis MD Chest X-Ray 11/04/16 0000 Signed Impressions: Service Date/Time: Friday, November 04, 2016 08:11 - CONCLUSION: Bilateral patchy airspace disease greater in the right perihilar region, slightly more prominent on current study. Josef Arnold MD CT Angiography 11/03/16 1115 Signed Impressions: Service Date/Time: Thursday, November 03, 2016 13:07 - CONCLUSION: 1. Examination is suboptimal for evaluation for PE. This is secondary to poor opacification of the pulmonary arteries likely due to bolus timing. No central PE is identified. If there is persistent clinical concern for PE, consider VQ scan or repeat attempt at a repeat study. 2. Moderate to severe bilateral airspace consolidation and groundglass opacity, right greater than left. Appearance is nonspecific. This could represent atypical pulmonary edema, organizing pneumonia, or other nonspecific inflammatory processes. Consider followup to confirm resolution. Seb Davis MD PHYSICAL EXAMINATION GENERAL: No acute distress. Awake and alert and oriented. HEENT: No icterus. Oropharynx moist mucosa. No visible lesions. No thrush. NECK: Supple. LUNGS: Clear breath sounds. HEART: Regular S1-S2. No audible murmurs or rubs or gallops. ABDOMEN: Bowel sounds present, soft. No hepatomegaly or splenomegaly. EXTREMITIES: No clubbing or cyanosis or edema. No calf tenderness. No embolic phenomena. SKIN: No rash. NEUROLOGIC: Alert and oriented. No gross focal findings. IMPRESSION 1. Bilateral lung infiltrates suggesting probable pneumonia versus autoimmune disease given the ground-glass opacity. This could also likely be due to atypical pneumonia, Organizing pneumonia. Sputum culture has normal shannan. Procalcitonin level low. Suspect non infectious cause. CXR markedly improved probably secondary to steroids. 2. Acute kidney disease stage II. Improved. 3. Hemoptysis. resolved. 4. Seizure. 5. Leukocytosis likely secondary to steroids. Stable - improved. RECOMMENDATIONS Stop piperacillin/Tazobactam. Okay to discharge on PO Azithromycin 250 mg x 5 days. Needs to establish follow up with Primary care physician. Shubham Reynolds MD November 06, 2016 11:18
--- NOTE | 2016-11-06 11:19 | HHI.DS ---
Discharge Summary Admission Date November 03, 2016 at 15:05 Discharge Date: November 06, 2016 Admitting Diagnosis (1) Seizure ICD Code: R56.9 Diagnosis: Principal (2) PNA (pneumonia) ICD Code: J18.9 Diagnosis: Principal (3) Rheumatoid arteritis ICD Code: I00 Diagnosis: Principal (4) Acute respiratory failure with hypoxia ICD Code: J96.01 Diagnosis: Principal (5) Sepsis ICD Code: A41.9 Diagnosis: Principal Procedures none Brief History - From Admission This is a 21-year-old female with a completely unremarkable past medical history who presents with a subacute history of altered mental status episodes which she states she was diagnosed as having seizures around [facility]. She had one of these episodes last night and since then has been feeling more weak and fatigued. She presents today in the emergency department and was found to be severely hypoxemic with SPO2 in the 70s. Chest x-ray showed bilateral pulmonary infiltrates. Chest CT angiography demonstrated multiple areas of groundglass opacities in all lung savage, negative for PE. 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 She states that over the past 2 weeks she's been taking an oral over-the- counter muscle building supplementation that she got from a [employer] store. She denies taking IV steroids. She denies any shortness of breath, and felt feels that she does not feel like she can't catch her breath. She denies chest pain, fever, chills. She denies night sweats. She is sexually active with 1 partner in the last 12 months. She takes control. She usually uses condoms, but not all the time. She has never had an STD before. She is only been out of the country to the [facility], and not in the last 12 months. She is born and raised in [place]. She's never been to the [place]. She has never been tested for HIV. She denies any weight loss over the last few months. She as recently as 2 days prior to admission aggressively weight trained for an upcoming competition, and did at least 2 hours of strenuous cardiovascular activity. She has had no change in functional status. Her laboratory data is significant for a leukocytosis with a white count 25,000 , negative troponin, BNP of 40, lactate of 1.8, negative urine drug screen. Critical care medicine is consulted to evaluate and manage her hypoxemia. She is on a nonrebreather on my evaluation. CBC/BMP: 11/06/16 0555 11/06/16 0555 Significant Findings Laboratory Tests Test 11/03/16 11/03/16 11/04/16 11/04/16 11:30 15:00 05:10 05:20 White Blood Count 25.6 TH/MM3 14.6 TH/MM3 (4.0-11.0) (4.0-11.0) Neutrophils (%) (Auto) 92.1 % (16.0-70.0) Lymphocytes (%) (Auto) 2.1 % (9.0-44.0) Neutrophils # (Auto) 23.6 TH/MM3 (1.8-7.7) Lymphocytes # (Auto) 0.5 TH/MM3 (1.0-4.8) Monocytes # (Auto) 1.4 TH/MM3 (0-0.9) Prothrombin Time 11.9 SEC (9.8-11.6) Activated Partial 22.9 SEC Thromboplast Time (24.3-30.1) Creatinine 1.10 MG/DL (0.50-1.00) Estimat Glomerular Filtration 62 ML/MIN (>89) 76 ML/MIN (>89) Rate Random Glucose 148 MG/DL 107 MG/DL (74-106) (74-106) Troponin I LESS THAN 0.02 NG/ML (0.02-0.05) Urine Specific [place] GREATER THAN 1.035 (1.002-1.035) Urine Bacteria RARE /hpf (NONE) Urine Mucus FEW /lpf (OCC) Chloride Level 108 MEQ/L (98-107) Calcium Level 7.9 MG/DL (8.5-10.1) Procalcitonin 1.48 ng/mL (0.00-0.50) Arterial Blood pH 7.44 (7.380-7.420) Arterial Blood Partial 32 mmHg (38-42) Pressure CO2 Test 11/04/16 11/04/16 11/05/16 11/05/16 10:08 14:33 01:00 06:18 Rheumatoid Factor Screen POSITIVE (NEGATIVE) Rheumatoid Factor Titer 45.7 IU/ML (0.0-14.9) Complement C3 87 MG/DL (90-180) Vancomycin Level Trough 3.0 MCG/ML (5.0-10.0) White Blood Count 19.3 TH/MM3 (4.0-11.0) Neutrophils (%) (Auto) 93.0 % (16.0-70.0) Lymphocytes (%) (Auto) 2.9 % (9.0-44.0) Neutrophils # (Auto) 17.9 TH/MM3 (1.8-7.7) Lymphocytes # (Auto) 0.6 TH/MM3 (1.0-4.8) Estimat Glomerular Filtration 87 ML/MIN (>89) Rate Random Glucose 152 MG/DL (74-106) Calcium Level 8.4 MG/DL (8.5-10.1) Test 11/06/16 05:55 White Blood Count 18.0 TH/MM3 (4.0-11.0) Red Blood Count 3.82 MIL/MM3 (4.00-5.30) Hemoglobin 11.4 GM/DL (11.6-15.3) Hematocrit 33.3 % (35.0-46.0) Neutrophils (%) (Auto) 91.0 % (16.0-70.0) Lymphocytes (%) (Auto) 3.4 % (9.0-44.0) Neutrophils # (Auto) 16.3 TH/MM3 (1.8-7.7) Lymphocytes # (Auto) 0.6 TH/MM3 (1.0-4.8) Monocytes # (Auto) 1.0 TH/MM3 (0-0.9) Estimat Glomerular Filtration 85 ML/MIN (>89) Rate Random Glucose 175 MG/DL (74-106) Calcium Level 8.3 MG/DL (8.5-10.1) Imaging Last Impressions Chest X-Ray 11/05/16 0000 Signed Impressions: Service Date/Time: Saturday, November 05, 2016 13:05 - CONCLUSION: Significant improvement in aeration. Seb Vitale MD Head CT 11/04/16 0000 Signed Impressions: Service Date/Time: Friday, November 04, 2016 12:52 - CONCLUSION: Negative noncontrast head CT. No acute finding is identified. If symptoms continue consider followup with MRI. Seb Davis MD CT Angiography 11/03/16 1115 Signed Impressions: Service Date/Time: Thursday, November 03, 2016 13:07 - CONCLUSION: 1. Examination is suboptimal for evaluation for PE. This is secondary to poor opacification of the pulmonary arteries likely due to bolus timing. No central PE is identified. If there is persistent clinical concern for PE, consider VQ scan or repeat attempt at a repeat study. 2. Moderate to severe bilateral airspace consolidation and groundglass opacity, right greater than left. Appearance is nonspecific. This could represent atypical pulmonary edema, organizing pneumonia, or other nonspecific inflammatory processes. Consider followup to confirm resolution. Seb Davis MD PE at Discharge GENERAL: PAtient is 21 yo sitting up in bed CARDIOVASCULAR: Regular rate and rhythm with no murmurs. RESPIRATORY: Breath sounds equal bilaterally. No accessory muscle use. GASTROINTESTINAL: Abdomen soft, non-tender, nondistended. MUSCULOSKELETAL: moves extremities w no difficulties Neuro: Awake and alert. Hospital Course 1)Acute hypoxic respiratory failure: Echo shows an EF of 60-65. See below 2)Bilateral groundglass pulmonary consolidations Continue Bronchodilators, was on Solumederol 60mg Q8 then transitioned to po prednisone Pt will f/u w pulm as an outpatient w repeat chest x-clarke YOANA negative, RF elevated, C3 low, C4 normal, SSA/SSB/ANCA, Jamaal level, Scl 70 so far all wnl. Patient has been counseled to follow-up with her primary care physician as an outpatient and to obtain a referral to rheumatology as an outpatient. s/p Zosyn, vanc and Azithromycin. Script for azithro was placed in chart for pt to finish course Strep pneumonia and Legionella urinary AG negative Chlamydia, Mycoplasma titers, Histo Ag which are negative 3)Leukocytosis.WBC up to 18 most likely secondary to steroid use 4)Mild MARYANN-resolved 5) seizures: Awake and alert, no recurrent seizures. Place on Ativan 1mg Q4 PRN seizures. neuro evaluated the pt and recommended keppra 250mg po BID x 1 week then increasing it to 500mg po bid however pt refused to take this as it causes alopecia and did ask for another medication which doesn't have this side effect. I did discuss this w Dr. Sun and he recommended switching to tegretol, start 100mg po BID x 1 week then increase to 200mg po BID. appreciate input from neurology. thus far tolerating it well EEG completed, final report pending. UDS is negative. CT head negative I did go over neuro's recommendations: no driving/swimming alone/climbing heights x 6 months of being sz free Pt did get frustrated and told me initially "I'm not listening to you anymore". she then went to tells me "what if Its been [id number] and I have another seizure" . I explained to her that not only is she putting herself at risk but putting other people's lives in danger. I stressed the importance of following our recommendations. She will be following w her neurologist in 1-2 weeks and can ask more questions and voice her concerns. I strongly encouraged her to take her meds upon discharge and follow instructions. I spoke w RN regarding my discussion w patient, she did also stress the importance of neuro's recs prior to discharge. Pt Condition on Discharge: Stable Discharge Disposition: Discharge Home Discharge Time: > 30 minutes Discharge Instructions DIET: Follow Instructions for: As Tolerated, No Restrictions Activities you can perform: See Additionl Instruction Follow up Referrals: Neurology - 2 Weeks Physician - 1 Week Pulmonology - 1 Week with Serenity Benton MD Rheumatology - 2 Weeks New Orders: X-RAY CHEST PA & LAT - 1 Week New Medications: Azithromycin (Azithromycin) 250 Mg Tab 250 MG PO DAILY Infection #5 Ref 0 TAB Carbamazepine (Carbamazepine) 100 Mg Chew 100 MG PO Q12HR take 100mg po twice a day x 6 more days then increase to 200mg po twice a day Days 30 EA Prednisone (Prednisone) 20 Mg Tab 40 MG PO DAILY take 40mg po x 1 day (starte 11/07/16), then 20mg po x 1 day then 10mg po x 2 then stop Days 4 TAB Continued Medications: ([ Control ]) Sigrid Mccoy MD November 06, 2016 11:19
--- NOTE | 2016-11-06 16:21 | MG ---
cc: KIMBERLI GARCIA Lab No: [id number] Date: Age:21 Sex: F Race: HISTORY: Seizure, hypoxia. 21-year-old. MEDICATIONS: Solu-Medrol. DESCRIPTION OF THE RECORDING: A 10 hertz 60 microvolt symmetric posterior rhythm is noted which appears normal. The recording overall is synchronous and symmetric. Photic stimulation was performed without significant posterior driving. Hyperventilation was performed without change in the background. No epileptiform or seizure activity is noted. There are no hemisphere asymmetries. The patient appears to fall asleep and reach stage 2 sleep with some K complexes and vertex sharp waves and some stage 2 sleep through the end of the recording. IMPRESSION: A normal awake and stage 2 sleep EEG. No evidence for a focal or diffuse abnormality. MD ADILENE Greenberg/BRICE /3:11 PM /4:17 PM
[2016-11-07 03:52] LABS: C PNEUMO IGA <1:16 (()); C PNEUMO IGG <1:64 (()); C PNEUMO IGM <1:10 (())
[2016-11-07 03:52] LABS: SCL-70 IGG AUTOAB <1.0 NEG AI (<1.0 NEGATIVE)
[2016-11-07] MEDS ORDERED: predniSONE 20 MG TAB PO SCH (09:00)
== END 2016-11-06 12:40 | disposition home or self-care (01) | DRG 871 ==
LOC: NEPE 11:03 → NEDA 15:05 → HIMN 16:25
PROVIDERS: ADMIT Hospitalist; ATTEND Hospitalist
DX: A41.9 Sepsis, unspecified organism (principal); J96.01 Acute respiratory failure with hypoxia; J18.9 Pneumonia, unspecified organism; N17.9 Acute kidney failure, unspecified; G40.909 Epilepsy, unspecified, not intractable, without status epilepticus
CPT/HCPCS: 36600; 70450; 71010; 71275; 80048; 80053; 80202; 80307; 81001; 82164; 82550; 82552; 82805; 83605; 83735; 83880; 84145; 84484; 84702; 85025; 85027; 85610; 85652; 85730; 86021; 86038; 86160; 86235; 86430; 86631; 86632; 86703; 86738; 87040; 87070; 87086; 87102; 87205; 87206; 87385; 87449; 87641; 93005; 93306; 94150; 94640; 94664; 94667; 94668; 95819; 96365; 96367; J0456; J2543; J2930; J3370; J7030; J7050; Q9967